=== PATIENT | female | born 1995 | race Caucasian/White ===

== ENCOUNTER 2017-03-12 17:08 | Emergency (ER) | payer SELFPAY ==
[2017-03-12 17:26] VITALS: BP 129/68
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
== END 2017-03-12 19:38 | disposition home or self-care (01) ==
LOC: UCEAST 17:08
DX: S16.1XXA Strain of muscle, fascia and tendon at neck level, initial encounter (principal); V43.52XA Car driver injured in collision with other type car in traffic accident, initial encounter; Y92.410 Unspecified street and highway as the place of occurrence of the external cause
CPT/HCPCS: 72020; 72050; 72070; 72110; 99212; G0463

== ENCOUNTER 2017-04-18 15:25 | Emergency (ER) | payer BC ==
[2017-04-18] MEDS ORDERED: HYDROmorphone* 1 MG/ML 1 ML SYR IV ONE (16:33)
[2017-04-18] MEDS ORDERED: LORazepam INJ* 2 MG/ML 1 ML VIAL IV PUSH ONE (16:33)
[2017-04-18] MEDS ORDERED: NS 0.9% 1000 ML* 1,000 ML IV ONE (16:33)
[2017-04-18 17:07] LABS: Hematocrit 42 % (35-47); Hemoglobin 13.9 g/dl (12.0-16.0); Mean Corpuscular HGB Conc 33 g/dl (31-36); Mean Corpuscular Hemoglobin 30 pg (27-31); Mean Corpuscular Volume 91 fL (80-97); Mean Platelet Volume 10 um3 (7.4-10.4); Red Blood Count 4.57 10^6/ul (4.0-5.4); Red Cell Distribution Width 13 % (10.5-15); White Blood Count 5.3 10^3/ul (3.5-10.8)
[2017-04-18 17:20] LABS: Albumin 4.3 g/dL (3.2-5.2); BUN/Creatinine Ratio 6.3 (8-20); C Reactive Protein 2.48 mg/L (< 5.00); Calcium 9.2 mg/dL (8.6-10.3); EGFR African American 94.6 (>60); EGFR Non-African American 73.6 (>60); Globulin 2.8 g/dL (2-4); Potassium 3.8 mmol/L (3.5-5.0); Total Bilirubin 0.8 mg/dL (0.2-1.0); Total Protein 7.1 g/dL (6.4-8.9)
--- NOTE | 2017-04-18 18:14 | RAD ---
HISTORY: Pelvic pain, misplaced IUD COMPARISONS: None TECHNIQUE: Multiple transverse and longitudinal ultrasound images were obtained of the pelvis using grayscale, color Doppler, and spectral Doppler imaging using the transabdominal transducer. FINDINGS: UTERUS: The uterus measures 7.8 x 3.1 x 5.3 cm. The uterus is normal in shape, size, contour, and echotexture. ENDOMETRIUM: The endometrial stripe is smooth. The endometrium measures 0.4 cm in thickness. An IUD is noted along the lower uterine segment extending into the endocervical canal. CUL-DE-SAC: There is no free fluid within the cul-de-sac. RIGHT OVARY: The right ovary measures 2.6 x 1.4 x 1.6 cm. Normal arterial and venous waveforms are identifiable within the ovary on spectral Doppler imaging. LEFT OVARY: The left ovary measures 3.1 x 2.2 x 2.2 cm. ] Normal ovary flow there is a 0.8 x 1.1 x 1.3 cm simple cyst of the left ovary. BLADDER: The visualized bladder is unremarkable. IMPRESSION: AN IUD IS NOTED ALONG THE LOWER UTERINE SEGMENT EXTENDING INTO THE ENDOCERVICAL CANAL.
[2017-04-18 18:24] LABS: Urine Bacteria 1+ (Absent); Urine Bilirubin Negative (Negative); Urine Glucose Negative (Negative); Urine Nitrite Negative (Negative)
[2017-04-18 20:21] VITALS: BP 125/76
--- NOTE | 2017-04-18 21:13 | ED ---
Cyn Eldridge Auryana, scribed for Jenny Lopez MD on 04/18/17 at 1632 . GI/ HPI - HPI Summary HPI Summary: 21 year old female presents with imbedded IUD. Patient reports that she had the IUD placed 4 years ago - known it was horizontal but reports that her doctors were not concerned. [facility]. She reports severe pelvic pain s/p attempt - patient states that she was given [facility] at [facility] without any improvement. [facility] referred the patient to Dr. Alvarado, but she is unable to get an initial appointment for another 2 weeks. LMP- 04/14/17. PMHx is significant for gastritis and migraines. FHx is significant for migraines. - History of Current Complaint Chief Complaint: EDGeneral Time Seen by Provider: 04/18/17 16:21 Stated Complaint: REMOVAL OF IUD Hx Obtained From: Patient Onset/Duration: Still Present Timing: Constant Severity: Moderate Current Severity: Severe Pain Intensity: 8 Location of Pain: None - pelvic pain Associated Signs and Symptoms: Positive: Other: - pelvic pain - Allergy/Home Medications Allergies/Adverse Reactions: Allergies Allergy/AdvReac Type Severity Reaction Status Date / Time Amoxicillin Allergy Intermediate Rash Verified 03/12/17 17:26 Mushroom Extract Complex Allergy Unknown Unknown Verified 03/12/17 17:26 Reaction Details hay Allergy Hives Uncoded 03/12/17 17:26 Home Medications: Home Medications Fexofenadine-Pseudoephedrine [Chioma-D 24 Hour Allergy] 1 tab PO BID 04/18/17 [ History Confirmed 04/18/17] PMH/Surg Hx/FS Hx/Imm Hx Endocrine/Hematology History: Denies: Hx Diabetes, Hx Thyroid Disease Cardiovascular History: Denies: Hx Hypercholesterolemia, Hx Hypertension, Hx Peripheral Vascular Disease Respiratory History: Reports: Hx Asthma GI History: Reports: Other GI Disorders - Gastritis Musculoskeletal History: Denies: Hx Arthritis, Hx Osteoporosis Sensory History: Denies: Hx Cataracts, Hx Contacts or Glasses, Hx Glaucoma Opthamlomology History: Denies: Hx Cataracts, Hx Contacts or Glasses, Hx Glaucoma Neurological History: Denies: Hx Headaches, Hx Seizures, Hx Transient Ischemic Attacks (TIA) Psychiatric History: Denies: Hx Anxiety, Hx Depression Infectious Disease History: Denies: Hx Clostridium Difficile, Hx Hepatitis, Hx Human Immunodeficiency Virus (HIV), Hx of Known/Suspected MRSA, Hx Shingles, Hx Tuberculosis, Hx Known/ Suspected VRE, Hx Known/Suspected VRSA, History Other Infectious Disease, Traveled Outside the [place] in Last 30 Days - Family History Known Family History: Positive: Hypertension, Diabetes - Social History Lives: Alone Alcohol Use: Occasionally Hx Substance Use: No Substance Use Type: Reports: None Hx Tobacco Use: No Smoking Status (MU): Never Smoked Tobacco Have You Smoked in the Last Year: No Review of Systems Constitutional: Negative Negative: Fever Eyes: Negative ENT: Negative Cardiovascular: Negative Respiratory: Negative Positive: Other - pelvic pain Genitourinary: Negative Musculoskeletal: Negative Skin: Negative Neurological: Negative Psychological: Normal All Other Systems Reviewed And Are Negative: Yes Physical Exam - Summary Physical Exam Summary: General: Well appearing, mild pain distress Skin: Warm, Skin Color Reflects Adequate Perfusion, Dry Eyes: EOMI, PAULINO ENT: Pharynx normal, TMs normal Neck: Supple, nontender Respiratory: CTA, breath sounds present, no rhonchi, no wheezes, no rales Cardiovascular: RRR, no murmur, no rub, no gallop Abdomen: Soft, diffuse abdominal tenderness, Non-distended, no guarding, no rebound Bowel: Present Musculoskeletal: BRAYDON, No edema Neuro: Sensory/motor intact, A&Ox3, CN intact 2-12 Psych: Affect/mood appropriate. pelvic exam - Triage Information Reviewed: Yes Vital Signs On Initial Exam: Initial Vitals Temp Pulse Resp BP Pulse Ox 98.3 F 70 18 126/78 97 04/18/17 15:28 04/18/17 15:28 04/18/17 15:28 04/18/17 15:28 04/18/17 15:28 Vital Signs Reviewed: Yes Diagnostics - Vital Signs Vital Signs Temp Pulse Resp BP Pulse Ox 04/18/17 15:28 98.3 F 70 18 126/78 97 - Laboratory Lab Results: Lab Results 04/18/17 04/18/17 04/18/17 Range/Units 16:55 16:55 18:00 WBC 5.3 (3.5-10.8) 10^3/ul RBC 4.57 (4.0-5.4) 10^6/ul Hgb 13.9 (12.0-16.0) g/dl Hct 42 (35-47) % MCV 91 (80-97) fL MCH 30 (27-31) pg MCHC 33 (31-36) g/dl RDW 13 (10.5-15) % Plt Count 162 (150-450) 10^3/ul MPV 10 (7.4-10.4) um3 Neut % (Auto) 56.9 (38-83) % Lymph % (Auto) 35.9 (25-47) % [place] % (Auto) 4.8 (1-9) % Eos % (Auto) 1.8 (0-6) % Baso % (Auto) 0.6 (0-2) % Absolute Neuts (auto) 3.0 (1.5-7.7) 10^3/ul Absolute Lymphs (auto) 1.9 (1.0-4.8) 10^3/ul Absolute Monos (auto) 0.3 (0-0.8) 10^3/ul Absolute Eos (auto) 0.1 (0-0.6) 10^3/ul Absolute Basos (auto) 0 (0-0.2) 10^3/ul Absolute Nucleated RBC 0.01 10^3/ul Nucleated RBC % 0.1 Sodium 138 (133-145) mmol/L Potassium 3.8 (3.5-5.0) mmol/L Chloride 107 (101-111) mmol/L Carbon Dioxide 24 (22-32) mmol/L Anion Gap 7 (2-11) mmol/L BUN 6 (6-24) mg/dL Creatinine 0.95 (0.51-0.95) mg/dL Est GFR ( Amer) 94.6 (>60) Est GFR (Non-Af Amer) 73.6 (>60) BUN/Creatinine Ratio 6.3 L (8-20) Glucose 89 (70-100) mg/dL Calcium 9.2 (8.6-10.3) mg/dL Total Bilirubin 0.80 (0.2-1.0) mg/dL AST 24 (13-39) U/L ALT 14 (7-52) U/L Alkaline Phosphatase 52 (34-104) U/L C-Reactive Protein 2.48 (< 5.00) mg/L Total Protein 7.1 (6.4-8.9) g/dL Albumin 4.3 (3.2-5.2) g/dL Globulin 2.8 (2-4) g/dL Albumin/Globulin Ratio 1.5 (1-3) Urine Color Yellow Urine Appearance Clear Urine pH 6.0 (5-9) Ur Specific [place] 1.010 (1.010-1.030) Urine Protein Negative (Negative) Urine Ketones Negative (Negative) Urine Blood Negative (Negative) Urine Nitrate Negative (Negative) Urine Bilirubin Negative (Negative) Urine Urobilinogen Negative (Negative) Ur Leukocyte Esterase Trace H (Negative) Urine WBC (Auto) Trace(0-5/hpf) (Absent) Urine RBC (Auto) Absent (Absent) Ur Squamous Epith Cells Present H (Absent) Urine Bacteria 1+ H (Absent) Urine Glucose Negative (Negative) Result Diagrams: 04/18/17 16:55 04/18/17 16:55 Lab Statement: Any lab studies that have been ordered have been reviewed, and results considered in the medical decision making process. - Additional Comments Diagnostic Additional Comments: US PELVIC: AN IUD IS NOTED ALONG THE LOWER UTERINE SEGMENT EXTENDING INTO THE ENDOCERVICAL CANAL. Re-Evaluation - Re-Evaluation First Eval Re-Evaluation Time: 20:10 Change: Unchanged GIGU Course/Dx - Course Course Of Treatment: 21 yo female with pain after an attempted iud removal talked with Rachel who will have pt seen in the next 2 business days for evaluation/removal - Diagnoses Provider Diagnoses: Pelvic pain, Intrauterine device (IUD) migration - Physician Notifications Discussed Care Of Patient With: Nina Gaxiola Time Discussed With Above Provider: 20:06 - HAVE PATIENT CALL OFFICE TOMORROW FOR AN APPOINTMENT .. Instructed by Provider To: Have Pt Call For Appt. Discharge - Discharge Plan Condition: Stable Disposition: HOME Patient Education Materials: Pelvic Pain in Women (ED) Referrals: Nina Gaxiola MD [Medical Doctor] - 1 Day (please call office tomorrow for an appointment.) The documentation as recorded by the Cyn abraham Auryana accurately reflects the service I personally performed and the decisions made by me, Jenny Lopez MD.
== END 2017-04-18 20:20 | disposition home or self-care (01) ==
LOC: ED 15:25
DX: T83.39XA Other mechanical complication of intrauterine contraceptive device, initial encounter (principal); Y84.8 Other medical procedures as the cause of abnormal reaction of the patient, or of later complication, without mention of misadventure at the time of the procedure; Z88.0 Allergy status to penicillin; R10.2 Pelvic and perineal pain
CPT/HCPCS: 36415; 76856; 80053; 81003; 81015; 85025; 86140; 87086; 96360; 96374; 96375; 99283; J1170; J2060

== ENCOUNTER 2017-04-23 18:23 | Emergency (ER) | payer BC ==
--- NOTE | 2017-04-23 20:54 | RAD ---
Indication: LEFT ankle and foot pain following injury. Comparison: No relevant prior exams available on the [facility] PACS for comparison. Technique: AP, lateral, and oblique views LEFT foot. AP, mortise, and lateral views LEFT ankle. Report: Normal articular alignment at the ankle and foot. Negative for fracture or osteochondral lesion at the ankle or foot. Negative for significant arthropathic change. Mild soft tissue swelling about the ankle without significant focality. IMPRESSION: Mild nonfocal soft tissue swelling about the ankle without additional radiographic abnormality of the ankle or foot.
--- NOTE | 2017-04-23 20:54 | RAD ---
Indication: LEFT ankle and foot pain following injury. Comparison: No relevant prior exams available on the [facility] PACS for comparison. Technique: AP, lateral, and oblique views LEFT foot. AP, mortise, and lateral views LEFT ankle. Report: Normal articular alignment at the ankle and foot. Negative for fracture or osteochondral lesion at the ankle or foot. Negative for significant arthropathic change. Mild soft tissue swelling about the ankle without significant focality. IMPRESSION: Mild nonfocal soft tissue swelling about the ankle without additional radiographic abnormality of the ankle or foot.
[2017-04-23] MEDS ORDERED: Acetaminophen TAB* 325 MG PO ONE (22:46)
--- NOTE | 2017-04-23 22:49 | ED ---
Lower Extremity - HPI Summary HPI Summary: Pt here w/ Lt ankle injury/pain/swelling after stepping into a divot tonight. Has pain w/ movement and weight bearing. Denies numbness, tingling, weakness. H/ o sprain to Rt ankle requiring cam walking boot. Has not tried anything for pain prior to arrival. No other injuries to report. Cannot take NSAID's d/t gastritis. - History of Current Complaint Chief Complaint: EDExtremityLower Stated Complaint: LT ANKLE INJURY Time Seen by Provider: 04/23/17 21:44 Hx Obtained From: Patient, Family/Pharmacy Technician Instructor - mother Hx Last Menstrual Period: 02/23/17 Pain Intensity: 8 - Allergies/Home Medications Allergies/Adverse Reactions: Allergies Allergy/AdvReac Type Severity Reaction Status Date / Time Amoxicillin Allergy Intermediate Rash Verified 04/23/17 13:26 Mushroom Extract Complex Allergy Unknown Unknown Verified 04/23/17 13:26 Reaction Details hay Allergy Hives Uncoded 04/23/17 13:26 PMH/Surg Hx/FS Hx/Imm Hx Previously Healthy: Yes Endocrine/Hematology History: Denies: Hx Anticoagulant Therapy, Hx Blood Disorders, Hx Diabetes, Hx Thyroid Disease Cardiovascular History: Denies: Hx Hypercholesterolemia, Hx Hypertension, Hx Peripheral Vascular Disease Respiratory History: Reports: Hx Asthma - INHALER AVAILABLE, USUALLY REST, DARK ROOM , NO MEDS GI History: Reports: Hx Gastroesophageal Reflux Disease - TRYS TO CONTROLL TRIGGERS: DIET, OTC MEDS, Other GI Disorders - Hx OF Gastritis History: Reports: Hx Kidney Stones - Hx OF, LAST WAS 12/2016, PASSES ON OWN Musculoskeletal History: Reports: Hx Tendonitis - Hx RT ARM/SHOLDER, NO Sx DURING 2017, Other Musculoskeletal History - morocho splints, Rt ankle sprain Denies: Hx Arthritis, Hx Osteoporosis Sensory History: Reports: Hx Contacts or Glasses - WEARS CONTACTS, WILL WEAR GLASSES DAY OF SURGERY Denies: Hx Cataracts, Hx Glaucoma Opthamlomology History: Reports: Hx Contacts or Glasses - WEARS CONTACTS, WILL WEAR GLASSES DAY OF SURGERY Denies: Hx Cataracts, Hx Glaucoma Neurological History: Reports: Hx Migraine - 1-2/WEEK, NO MEDS, DARK ROOM, RESTS Denies: Hx Headaches, Hx Seizures, Hx Transient Ischemic Attacks (TIA) Psychiatric History: Reports: Hx Anxiety, Hx Depression Infectious Disease History: No Infectious Disease History: Denies: Hx Clostridium Difficile, Hx Hepatitis, Hx Human Immunodeficiency Virus (HIV), Hx of Known/Suspected MRSA, Hx Shingles, Hx Tuberculosis, Hx Known/ Suspected VRE, Hx Known/Suspected VRSA, History Other Infectious Disease, Traveled Outside the [place] in Last 30 Days - Family History Known Family History: Positive: Hypertension, Diabetes - Social History 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 Lives: With Family Alcohol Use: Occasionally Alcohol Amount: 1-2 DRINKS/MONTH Hx Substance Use: No Substance Use Type: Reports: None Hx Tobacco Use: No Smoking Status (MU): Never Smoked Tobacco Have You Smoked in the Last Year: No Review of Systems Musculoskeletal: Other - see HPI Skin: Negative Neurological: Negative Positive: Anxious All Other Systems Reviewed And Are Negative: Yes Physical Exam Triage Information Reviewed: Yes Vital Signs On Initial Exam: Initial Vitals Temp Pulse Resp BP Pulse Ox 98.3 F 105 20 149/76 98 04/23/17 18:25 04/23/17 18:25 04/23/17 18:25 04/23/17 18:25 04/23/17 18:25 Vital Signs Reviewed: Yes Appearance: Positive: Well-Appearing, No Pain Distress - at rest - worse w/ any palpation, Well-Nourished Skin: Positive: Warm, Dry - no erythema, no ecchymosis - mild edema about the lateral malleolus which is TTP Head/Face: Positive: Normal Head/Face Inspection ENT: Positive: Hearing grossly normal Respiratory/Lung Sounds: Positive: Breath Sounds Present Cardiovascular: Positive: Pulses are Symmetrical in both Upper and Lower Extremities Musculoskeletal: Positive: Strength/ROM Intact - toes and knee, Limited @ - Lt ankle ROM limited d/t pain, Pain @ - exquisite tenderness with touching skin - no sebastian deformity Neurological: Positive: Normal, Sensory/Motor Intact, Alert, Oriented to Person Place, Time, CN Intact II-III Psychiatric: Positive: Anxious - agitated Procedures - Splinting Hand-Made Type: fiberglass Splint: posterior walking Pre-Proc Neuro Vasc Exam: normal Post-Proc Neuro Vasc Exam: normal Diagnostics - Vital Signs Vital Signs Temp Pulse Resp BP Pulse Ox 04/23/17 19:14 98.8 F 82 18 117/67 98 04/23/17 18:25 98.3 F 105 20 149/76 98 - Laboratory Lab Statement: Any lab studies that have been ordered have been reviewed, and results considered in the medical decision making process. Re-Evaluation - Re-Evaluation First Eval Change: Improved - w/ splint in place but still requesting stronger pain med for sleep tonight Lower Extremity Course/Dx - Course Course Of Treatment: Pt here w/ Lt ankle injury while playing softball tonight. No fx, no dislocation. Pain is out of proportion for exam and XR results. Initially ordered cam walking boot however these are out of stock in her size so a posterior walking splint was applied. Pt given crutches and advised to RICE and take tylenol until seen by ortho in the event she has a more significant soft tissue injury missed in ED tonight. Xr reviewed by myself as well as Dr. Osman along with Dr. Last whose report is w/o acute pathology. 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 - Diagnoses Provider Diagnoses: Left ankle sprain - Physician Notifications Discussed Care Of Patient With: Dr. Osman Discharge - Discharge Plan Condition: Stable Disposition: HOME Patient Education Materials: Ankle Sprain (ED), Crutch Instructions (ED) Forms: *Work Release Referrals: Tree Ortiz MD [Medical Doctor] - Additional Instructions: Rest, ice, elevate Keep splint in place until seen by orthopedics - call tomorrow to schedule an appointment Use crutches to avoid weight bearing until able to tolerate You may take acetaminophen 975mg every 6 hours for pain
[2017-04-23] MEDS ORDERED: HYDROcodone/ACETAMIN 5-325 MG* 1 TAB PO ONE (23:09)
[2017-04-24 00:44] VITALS: BP 132/68
== END 2017-04-24 00:44 | disposition home or self-care (01) ==
LOC: ED 18:23
DX: S93.402A Sprain of unspecified ligament of left ankle, initial encounter (principal); X50.1XXA Overexertion from prolonged static or awkward postures, initial encounter; Y92.9 Unspecified place or not applicable; Z88.0 Allergy status to penicillin; Y93.64 Activity, baseball
CPT/HCPCS: 29515; 99282; A9270-GY

== ENCOUNTER 2017-04-26 09:34 | Day surgery (SDC) | payer BC ==
[~2017-04-26 09:34] MED LIST: Buffered Lidocaine 0.9% SYRIN* 5 ML/SYR SYRINGE INTRADERM ONE
[2017-04-26] MEDS ORDERED: Buffered Lidocaine 0.9% SYRIN* 5 ML/SYR SYRINGE ONE (09:36)
[2017-04-26 09:47] LABS: Manual Entry Verification JEA0012; UR Preg Internal Control QC Line Present
[2017-04-26] MEDS ORDERED: Midazolam* 1 MG/ML 2 ML VIAL (2 MG) ONE (10:29)
[2017-04-26] MEDS ORDERED: fentaNYL* 50 MCG/ML 2 ML VIAL (100 MCG VIAL) ONE (10:29)
[2017-04-26] MEDS ORDERED: Ketorolac INJ* 30 MG/ML 1 ML VIAL ONE (11:42)
[2017-04-26] MEDS ORDERED: Famotidine IV* 10 MG/ML 2 ML (20 mg) ONE (11:42)
[2017-04-26] MEDS ORDERED: Dexamethasone IV* 4 MG/ML 1 ML (4 MG) ONE (11:42)
[2017-04-26] MEDS ORDERED: Propofol* 10 MG/ML 20 ML BTL IV PUSH ONE (11:42)
[2017-04-26] MEDS ORDERED: Lidocaine 2% PF * 5 ML VIAL ONE (11:42)
[2017-04-26] MEDS ORDERED: Ondansetron INJ* 2 MG/ML VIAL IV PRN (12:01)
[2017-04-26] MEDS ORDERED: Acetaminophen TAB* 325 MG PO PRN (12:01)
[2017-04-26] MEDS ORDERED: DiMENhydriNATE IV* 50 MG/ML VIAL IV PUSH PRN (12:01)
[2017-04-26] MEDS ORDERED: HYDROcodone/ACETAMIN 5-325 MG* 1 TAB PO PRN (12:01)
[2017-04-26] MEDS ORDERED: Acetaminophen TAB* 325 MG ONE (12:33)
[2017-04-26 12:47] VITALS: BP 101/58
--- NOTE | 2017-05-16 13:29 | OP ---
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 ANESTHESIOLOGIST: Dr. Beltrán ANESTHESIA: General. PRE-OP DIAGNOSIS: Misplaced intrauterine device. POST-OP DIAGNOSIS: Misplaced intrauterine device. OPERATIVE PROCEDURE: Dilation hysteroscopy and removal of IUD. ESTIMATED BLOOD LOSS: Minimal. HYSTEROSCOPIC FLUID DEFICIT: Zero. URINE OUTPUT: 100 cc. SPECIMEN: IUD. FLUIDS: 800 cc of crystalloid. DRAINS: None. FINDINGS: Revealed normal tubal ostia. IUD removed with polyp forceps. Normal uterine cavity. Area seen within the endocervical canal where the IUD was wedged was identified. COMPLICATIONS: None apparent. DISPOSITION: Stable to recovery room. DESCRIPTION OF PROCEDURE: The patient was placed in dorsal lithotomy position. Legs were placed in Hydro Geoff stirrups. Perineum and vagina were prepped and draped in a sterile standard fashion. The patient was identified with universal protocol for correct procedure, patient procedure. Straight cath was used to drain clear yellow urine, 100 cc. Self-cath was removed. Sterile speculum was inserted. Cervix was visualized. The IUD string was visualized, grasped with a sponge forceps, and IUD was removed without difficulty. The anterior lip of the cervix was grasped with a single-toothed tenaculum and dilated to #6 Hegar dilator and the hysteroscope was inserted. The spot where the IUD placed wedged in the endocervix was identified. The uterine cavity was noted to have a normal appearance. Tubal ostia was seen and noted to have a normal appearance. Hysteroscope was removed. Single-toothed tenaculum was removed. Sterile speculum was removed. All sponge, instrument, and blade counts were correct throughout the case. The patient tolerated the procedure well and went to recovery room in stable condition. [id number]/[facility] #: [id number] [facility]
== END 2017-04-26 13:07 | disposition home or self-care (01) ==
LOC: OR 09:34
PROVIDERS: ATTEND Obstetrics & Gynecology
DX: T83.32XA Displacement of intrauterine contraceptive device, initial encounter (principal); R00.2 Palpitations; J45.909 Unspecified asthma, uncomplicated
CPT/HCPCS: 81025; 88300; A9270-GY; J1100; J1885; J2250; J2704; J3010

== ENCOUNTER 2017-07-02 21:07 | Emergency (ER) | payer BC ==
[2017-07-02 21:17] VITALS: BP 145/71
[2017-07-02] MEDS ORDERED: LORazepam TAB(*) 1 MG PO ONE (21:35)
--- NOTE | 2017-07-02 21:41 | UC ---
Psychiatric Complaint HPI - HPI Summary HPI Summary: Patient presents to the with CC of anxiety. She has a long history of anxiety which was previously treated with zoloft 75mg. After switching physicians, the new physician started her off on 25mg for which she said did not help, so she stopped taking the medication. Since that time, her anxiety has escalated and now has crying moments every few days. Hx of depression. Denies SI/HI. Denies self harm. Denies worsening depression recently, just notes to worsening anxiety. Unknown what is causing the anxiety as she has no excess stress in her life. Denies health problems otherwise. Never dx with bipolar or psychosis. - History Of Current Complaint Chief Complaint: UCPsych Stated Complaint: ANXIETY Time Seen by Provider: 07/02/17 21:24 Hx Obtained From: Patient Hx Last Menstrual Period: may 27 ?: Yes Onset/Duration: Sudden Onset Timing: Constant Severity Initially: Moderate Severity Currently: Moderate Character: Depressed, Anxious Aggravating Factor(s): Medication Non-compliance Alleviating Factor(s): Medication Associated Signs And Symptoms: Sleep Disturbance, Social Withdrawal, Social Isolation Related History: Positive For: Prior Psychiatric Issues - depression/anxiety - Risk Factor(s) Completed Suicide Risk Factors: Negative - Allergies/Home Medications Allergies/Adverse Reactions: Allergies Allergy/AdvReac Type Severity Reaction Status Date / Time Amoxicillin Allergy Intermediate Rash Verified 07/02/17 21:17 Mushroom Extract Complex Allergy Unknown Unknown Verified 07/02/17 21:17 Reaction Details hay Allergy Hives Uncoded 07/02/17 21:17 PMH/Surg Hx/FS Hx/Imm Hx Previously Healthy: Yes Other History Of: Negative For: Anticoagulant Therapy - Surgical History Surgical History: Yes Surgery Procedure, Year, and Place: cervical surgery summer 2016 - Family History Known Family History: Positive: None, Hypertension, Diabetes - Social History Alcohol Use: Rare Alcohol Amount: 1-2 DRINKS/MONTH Substance Use Type: None Smoking Status (MU): Never Smoked Tobacco Have You Smoked in the Last Year: No - Immunization History Most Recent Influenza Vaccination: 2014 Most Recent Tetanus Shot: up to date Vaccination Up to Date: Yes Review of Systems Constitutional: Negative Skin: Negative Respiratory: Negative Cardiovascular: Negative Motor: Negative Neurovascular: Negative Musculoskeletal: Negative Neurological: Negative Psychological: Anxious, Depressed Is Patient Immunocompromised?: No All Other Systems Reviewed And Are Negative: Yes Physical Exam Triage Information Reviewed: Yes Appearance: Well-Appearing, Well-Nourished Vital Signs: Initial Vital Signs Temp 100.4 F 07/02/17 21:11 Pulse 109 07/02/17 21:11 Resp 22 07/02/17 21:11 BP 145/71 07/02/17 21:11 Pulse Ox 100 07/02/17 21:11 Vital Signs Reviewed: Yes Eye Exam: Normal Eyes: Positive: Conjunctiva Clear Neck exam: Normal Neck: Positive: Supple, Nontender Respiratory Exam: Normal Respiratory: Positive: Chest non-tender, Lungs clear Cardiovascular Exam: Normal Cardiovascular: Positive: RRR Musculoskeletal Exam: Normal Musculoskeletal: Positive: Strength Intact Neurological Exam: Normal Neurological: Positive: Alert Psychological: Positive: Age Appropriate Behavior, Consolable Skin Exam: Normal Psych Complaint Course/Dx - Course Course Of Treatment: Patient is tearful on examination. She has been having worsening anxiety with unknown cause. Discussed treatment options. Provider states she is able to provide patient with a small amount of anxiety medication for breakthrough anxiety not well controlled with organic methods. She agrees to try this medication as she has had it before without complications and improvement of anxiety symptoms. Denies other symptoms including SI/HI or self harm. She has an appt on Jul [address] Rai for evaluation of anxiety and depression. No previous suicide attempts. Mother with her at appt and supportive family at home per mother. She agrees to go directly to the ED if any symptoms worsen, she has thoughts of depression or suicide or the medication is not improving her symptoms. She is OK with discharge. - Differential Dx/Diagnosis Differential Diagnosis/HQI/PQRI: Depression Provider Diagnoses: Anxiety Discharge - Discharge Plan Condition: Stable Disposition: HOME Prescriptions: LORazepam TAB(*) [Ativan 1 MG TAB (*)] 1 mg PO Q8H PRN #20 tab MDD 3 PRN Reason: Anxiety Patient Education Materials: Anxiety (ED) Referrals: Mirtha Sigala MD [Primary Care Provider] - Additional Instructions: Please take only through breakthrough anxiety If you develop any worsening symptoms of anxiety - you need to go IMMEDIATELY to the ED Follow up with Dr. Martinez as established on 07/30/17. Try breathing techniques, exercise or other activities you think will help your anxiety
== END 2017-07-02 21:42 | disposition home or self-care (01) ==
LOC: UCEAST 21:07
DX: F41.9 Anxiety disorder, unspecified (principal); F32.9 Major depressive disorder, single episode, unspecified; Z91.19 Patient's noncompliance with other medical treatment and regimen; Z88.3 Allergy status to other anti-infective agents
CPT/HCPCS: 99212; A9270-GY; G0463

== ENCOUNTER 2018-03-04 16:25 | Emergency (ER) | payer BC ==
[2018-03-04 16:52] VITALS: BP 115/55
--- NOTE | 2018-03-04 17:20 | UC ---
Complaint Female HPI - HPI Summary HPI Summary: Patient began with pain burning urgency frequency urinating in frequent small amounts 7 days ago. Symptoms continue no fevers chills nausea vomiting back pain - History Of Current Complaint Chief Complaint: UCGU Stated Complaint: BURNING URINATION Time Seen by Provider: 03/04/18 17:12 Hx Obtained From: Patient Hx Last Menstrual Period: 02/01/18 ?: No Onset/Duration: Sudden Onset, Lasting Days - 7, Still Present Timing: Constant Pain Intensity: 0 Character: Burning Aggravating Factor(s): Urination Alleviating Factor(s): Nothing Associated Signs And Symptoms: Positive: Negative - Allergies/Home Medications Allergies/Adverse Reactions: Allergies Allergy/AdvReac Type Severity Reaction Status Date / Time amoxicillin Allergy Intermediate Rash Verified 03/04/18 17:07 mushroom Allergy See Comment Verified 03/04/18 17:07 hay Allergy Hives Uncoded 03/04/18 17:07 Home Medications: Home Medications Gabapentin CAP(*) [Neurontin 300 CAP(*)] 300 mg PO DAILY 03/04/18 [History Confirmed 03/04/18] PMH/Surg Hx/FS Hx/Imm Hx Previously Healthy: No - environmental allergies Psychological History: Anxiety Other History Of: Negative For: Anticoagulant Therapy - Surgical History Surgical History: Yes Surgery Procedure, Year, and Place: REMOVAL OF EMBEDDED IUD IN CERVIX - Family History Known Family History: Positive: None, Hypertension, Diabetes - Social History Occupation: Student Lives: With Family Alcohol Use: Rare Alcohol Amount: 1-2 DRINKS/MONTH Substance Use Type: None Smoking Status (MU): Never Smoked Tobacco Have You Smoked in the Last Year: No - Immunization History Most Recent Influenza Vaccination: 2014 Most Recent Tetanus Shot: up to date Vaccination Up to Date: Yes Review of Systems Constitutional: Negative Skin: Negative Eyes: Negative ENT: Negative Respiratory: Negative Cardiovascular: Negative Gastrointestinal: Negative Genitourinary: Dysuria, Frequency, Urgency Motor: Negative Neurovascular: Negative Musculoskeletal: Negative Neurological: Negative Psychological: Negative Is Patient Immunocompromised?: No All Other Systems Reviewed And Are Negative: Yes Physical Exam Triage Information Reviewed: Yes Appearance: Well-Appearing, No Pain Distress, Well-Nourished Vital Signs: Initial Vital Signs Temp 99.2 F 03/04/18 16:43 Pulse 84 03/04/18 16:43 Resp 16 03/04/18 16:43 BP 115/55 03/04/18 16:43 Pulse Ox 100 03/04/18 16:43 Vital Signs Reviewed: Yes Eye Exam: Normal Eyes: Positive: Conjunctiva Clear ENT Exam: Normal ENT: Positive: Normal ENT inspection, Hearing grossly normal. Negative: Trismus , Muffled voice, Hoarse voice Dental Exam: Normal Neck exam: Normal Neck: Positive: Supple, Nontender Respiratory Exam: Normal Respiratory: Positive: Chest non-tender, No respiratory distress, No accessory muscle use Cardiovascular Exam: Normal Cardiovascular: Positive: RRR, Pulses Normal, Brisk Capillary Refill Musculoskeletal Exam: Normal Musculoskeletal: Positive: Strength Intact, ROM Intact, No Edema Neurological Exam: Normal Neurological: Positive: Alert, Muscle Tone Normal Psychological Exam: Normal Skin Exam: Normal Diagnostics - Laboratory Diagnostic Studies Completed/Ordered: +2 Leukoesterase, trace lysed blood Complaint Female Dx - Course Course Of Treatment: Increase fluids, Macrobid, Pyridium, culture urine follow with PCP when necessary - Differential Dx/Diagnosis Provider Diagnoses: UTI Discharge - Sign-Out/Discharge Documenting (check all that apply): Discharge/Admit/Transfer - Discharge Plan Condition: Stable Disposition: HOME Prescriptions: Nitrofurantoin Monohyd/M-Cryst [Macrobid 100 mg Capsule] 100 mg PO BID #10 cap Phenazopyridine TAB* [Pyridium 100 mg TAB*] 100 mg PO TID PRN #6 tab PRN Reason: urinary pain and burning Patient Education Materials: Urinary Tract Infection in Women (ED) Referrals: Mirtha Sigala MD [Primary Care Provider] - If Needed - Billing Disposition and Condition Condition: STABLE Disposition: Home
== END 2018-03-04 17:28 | disposition home or self-care (01) ==
LOC: UCEAST 16:25
DX: F41.9 Anxiety disorder, unspecified (principal); N39.0 Urinary tract infection, site not specified; Z88.0 Allergy status to penicillin
CPT/HCPCS: 81003; 87077; 87086; 87186; 99212; G0463

== ENCOUNTER 2018-09-23 12:10 | Emergency (ER) | payer BC ==
[2018-09-23 12:27] VITALS: BP 128/71
[2018-09-23] MEDS ORDERED: Ketorolac INJ* 60 MG/2 ML VIAL IM ONE (12:51)
--- NOTE | 2018-09-23 12:58 | ED ---
Back Pain - HPI Summary HPI Summary: 22 yo WF with presents with right LBP started while bending over to tie her shoelace, started about 130pm yesterday afternoon, denies previous injury or fall. never had this happen before. Pain is right lower paraspinal region with radiation to right posterior-lateral thigh. Tried taking ibuprofen, hydrocodone , without improvement - History of Current Complaint Chief Complaint: UCBackPain Stated Complaint: BACK INJURY Time Seen by Provider: 09/23/18 12:46 Hx Obtained From: Patient Hx Last Menstrual Period: August 27, 2018 Onset/Duration: Sudden Onset Onset/Duration: Started Days Ago Timing: Constant, Intermittent Severity Initially: Moderate Severity Currently: Severe Pain Intensity: 10 Character: Sharp - Allergies/Home Medications Allergies/Adverse Reactions: Allergies Allergy/AdvReac Type Severity Reaction Status Date / Time amoxicillin Allergy Intermediate Rash Verified 09/23/18 12:20 mushroom Allergy See Comment Verified 09/23/18 12:20 hay Allergy Hives Uncoded 09/23/18 12:20 Home Medications: Home Medications Cyclobenzaprine TAB* [Flexeril 10 MG TAB*] 10 mg PO BID PRN 09/23/18 [History Confirmed 09/23/18] Hydrocodone/APAP 5/300 (NF) [Vicodin 5 MG/300 MG(NF)] 1 tab PO Q6H PRN 09/23/18 [History Confirmed 09/23/18] Ibuprofen 800 mg PO Q8HR PRN 09/23/18 [History Confirmed 09/23/18] Sertraline HCl [Zoloft] 100 mg PO DAILY 09/23/18 [History Confirmed 09/23/18] PMH/Surg Hx/FS Hx/Imm Hx Previously Healthy: Yes Endocrine/Hematology History: Denies: Hx Anticoagulant Therapy, Hx Blood Disorders, Hx Diabetes, Hx Thyroid Disease Cardiovascular History: Denies: Hx Hypercholesterolemia, Hx Hypertension, Hx Pacemaker/ICD, Hx Peripheral Vascular Disease Respiratory History: Reports: Hx Asthma - INHALER AVAILABLE, USUALLY REST, DARK ROOM , NO MEDS GI History: Reports: Hx Gastroesophageal Reflux Disease - TRYS TO CONTROLL TRIGGERS: DIET, OTC MEDS, Other GI Disorders - Hx OF Gastritis History: Reports: Hx Kidney Stones - Hx OF, LAST WAS 12/2016, PASSES ON OWN Denies: Hx Renal Disease Musculoskeletal History: Reports: Hx Tendonitis - Hx RT ARM/SHOLDER, NO Sx DURING 2017, Other Musculoskeletal History - morocho splints, Rt ankle sprain Denies: Hx Arthritis, Hx Osteoporosis Sensory History: Reports: Hx Contacts or Glasses - WEARS CONTACTS, WILL WEAR GLASSES DAY OF SURGERY Denies: Hx Cataracts, Hx Glaucoma, Hx Hearing Aid Opthamlomology History: Reports: Hx Contacts or Glasses - WEARS CONTACTS, WILL WEAR GLASSES DAY OF SURGERY Denies: Hx Cataracts, Hx Glaucoma Neurological History: Reports: Hx Migraine - 1-2/WEEK, NO MEDS, DARK ROOM, RESTS Denies: Hx Headaches, Hx Seizures, Hx Transient Ischemic Attacks (TIA) Psychiatric History: Reports: Hx Anxiety, Hx Depression Denies: Hx Panic Disorder - Surgical History Surgery Procedure, Year, and Place: REMOVAL OF EMBEDDED IUD IN CERVIX Infectious Disease History: No Infectious Disease History: Denies: Hx Clostridium Difficile, Hx Hepatitis, Hx Human Immunodeficiency Virus (HIV), Hx of Known/Suspected MRSA, Hx Shingles, Hx Tuberculosis, Hx Known/ Suspected VRE, Hx Known/Suspected VRSA, History Other Infectious Disease, Traveled Outside the [place] in Last 30 Days - Family History Known Family History: Positive: None, Hypertension, Diabetes - Social History Alcohol Use: Rare Alcohol Amount: 1-2 DRINKS/MONTH Hx Substance Use: No Substance Use Type: Reports: None Hx Tobacco Use: No Smoking Status (MU): Never Smoked Tobacco Have You Smoked in the Last Year: No Review of Systems Constitutional: Negative Eyes: Negative ENT: Negative Cardiovascular: Negative Respiratory: Negative Gastrointestinal: Negative Genitourinary: Negative Musculoskeletal: Other - see HPI Positive: Decreased ROM Skin: Negative Neurological: Negative All Other Systems Reviewed And Are Negative: Yes Physical Exam - Summary Physical Exam Summary: Vital Signs Reviewed: Yes Skin: Positive: Warm Head/Face: Positive: Normal Head/Face Inspection Eyes: Positive: Normal ENT: Positive: Normal ENT inspection Neck: Positive: Supple Respiratory/Lung Sounds: Positive: Clear to Auscultation Cardiovascular: Positive: Normal, RRR, S1, S2 Abdomen Description: Positive: Nontender Musculoskeletal: Positive: right paravertebral tenderness and along the spinous process of L1-3 with radiculopathy with mild tingling on right foot, NVI Neurological: Positive: Normal Psychiatric: Positive: Normal, Affect/Mood Appropriate Vital Signs On Initial Exam: Initial Vitals Temp Pulse Resp BP Pulse Ox 37.3 C 89 18 128/71 99 09/23/18 12:17 09/23/18 12:17 09/23/18 12:17 09/23/18 12:17 09/23/18 12:17 Diagnostics - Vital Signs Vital Signs Temp Pulse Resp BP Pulse Ox 09/23/18 12:17 37.3 C 89 18 128/71 99 - Laboratory Lab Statement: Any lab studies that have been ordered have been reviewed, and results considered in the medical decision making process. Back Pain Course/Dx - Course Assessment/Plan: Right LBP with sciatica- lumbar XR neg for fx- pt still c/o intractable back pain in spite of IM Toradol- Declined PO norco in UC, advised to go to ER - Diagnoses Provider Diagnoses: Acute right-sided low back pain with right-sided sciatica Discharge - Sign-Out/Discharge Documenting (check all that apply): Patient Departure All imaging exams completed and their final reports reviewed: Yes - Discharge Plan Condition: Stable Disposition: HOME Referrals: Mirtha Sigala MD [Primary Care Provider] - Additional Instructions: PLEASE GO TO ER FOR INTRACTABLE BACK PAIN - Billing Disposition and Condition Condition: STABLE Disposition: Home
[2018-09-23] MEDS ORDERED: HYDROcodone/ACETAMIN 5-325 MG* 1 TAB PO ONE (13:32)
== END 2018-09-23 13:45 | disposition home health service (06) ==
LOC: UCEAST 12:10
DX: M54.41 Lumbago with sciatica, right side (principal); J45.909 Unspecified asthma, uncomplicated; Z88.0 Allergy status to penicillin; Z91.018 Allergy to other foods; Z91.048 Other nonmedicinal substance allergy status
CPT/HCPCS: 72110; 96372; 99212; G0463; J1885

== ENCOUNTER 2018-09-23 14:03 | Emergency (ER) | payer BC ==
--- NOTE | 2018-09-23 14:12 | ED ---
Back Pain - HPI Summary HPI Summary: Pt sent from for lumbar radiculopathy. Injured yesterday while bending over to tie shoes - pain is in central sacral area and radiates into lateral and anterior thigh on Rt. Denies numbness, tingling, weakness or change in bowel/ bladder habits. Had fiance rub her back last night w/o relief. Also tried norco , ibuprofen, percocet and flexeril last night w/o relief. 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 DOes admit to h/o migraine, anxiety and depression. At , she had a lumbar XR which reveals no fx, no dislocation. Received toradol IM at w/o relief and declined PO meds. Here for pain relief. ISTOP Reference #: [id number] - does not reveal narcotics nor benzos filled in any state despite pt reports of rx for norco, percocet, ativan - History of Current Complaint Chief Complaint: EDBackInjuryPain Stated Complaint: SEVERE BACK PAIN Time Seen by Provider: 09/23/18 14:05 Hx Obtained From: Patient Hx Last Menstrual Period: August 27, 2018 Pain Intensity: 9 - Allergies/Home Medications Allergies/Adverse Reactions: Allergies Allergy/AdvReac Type Severity Reaction Status Date / Time amoxicillin Allergy Intermediate Rash Verified 09/23/18 14:09 mushroom Allergy See Comment Verified 09/23/18 14:09 hay Allergy Hives Uncoded 09/23/18 12:20 PMH/Surg Hx/FS Hx/Imm Hx Previously Healthy: Yes Endocrine/Hematology History: Denies: Hx Anticoagulant Therapy, Hx Blood Disorders, Hx Diabetes, Hx Thyroid Disease, Autoimmune Disease Cardiovascular History: Denies: Hx Hypercholesterolemia, Hx Hypertension, Hx Pacemaker/ICD, Hx Peripheral Vascular Disease Respiratory History: Reports: Hx Asthma - INHALER AVAILABLE, USUALLY REST, DARK ROOM , NO MEDS, Other Respiratory Problems/Disorders - dermatitis GI History: Reports: Hx Gastroesophageal Reflux Disease - TRYS TO CONTROLL TRIGGERS: DIET, OTC MEDS, Other GI Disorders - Hx OF Gastritis History: Reports: Hx Kidney Stones - Hx OF, LAST WAS 12/2016, PASSES ON OWN Denies: Hx Renal Disease Musculoskeletal History: Reports: Hx Back Problems - recurrent back strains, Hx Orthopedic Injury - knees, Hx Tendonitis - Hx RT ARM/SHOULDER, NO Sx DURING 2017 , Other Musculoskeletal History - morocho splints, Rt ankle sprain Denies: Hx Arthritis, Hx Osteoporosis Sensory History: Reports: Hx Contacts or Glasses - WEARS CONTACTS, WILL WEAR GLASSES DAY OF SURGERY Denies: Hx Cataracts, Hx Glaucoma, Hx Hearing Aid Opthamlomology History: Reports: Hx Contacts or Glasses - WEARS CONTACTS, WILL WEAR GLASSES DAY OF SURGERY Denies: Hx Cataracts, Hx Glaucoma Neurological History: Reports: Hx Migraine - 1-2/WEEK, NO MEDS, DARK ROOM, RESTS Denies: Hx Headaches, Hx Seizures, Hx Transient Ischemic Attacks (TIA) Psychiatric History: Reports: Hx Anxiety - pt reports she takes ativan at home, Hx Depression Denies: Hx Panic Disorder - Surgical History Surgery Procedure, Year, and Place: REMOVAL OF EMBEDDED IUD IN CERVIX Infectious Disease History: No Infectious Disease History: Denies: Hx Clostridium Difficile, Hx Hepatitis, Hx Human Immunodeficiency Virus (HIV), Hx of Known/Suspected MRSA, Hx Shingles, Hx Tuberculosis, Hx Known/ Suspected VRE, Hx Known/Suspected VRSA, History Other Infectious Disease, Traveled Outside the [place] in Last 30 Days - Family History Known Family History: Positive: Hypertension, Diabetes - Social History 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, 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, 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 Lives: With Family - fiance Alcohol Use: Rare Alcohol Amount: 1-2 DRINKS/MONTH Hx Substance Use: No Substance Use Type: Reports: None, Prescribed - pt denies Hx Tobacco Use: No Smoking Status (MU): Never Smoked Tobacco Have You Smoked in the Last Year: No Review of Systems Constitutional: Negative Gastrointestinal: Negative Genitourinary: Negative Positive: Arthralgia Skin: Negative Neurological: Negative Psychological: Normal All Other Systems Reviewed And Are Negative: Yes Physical Exam Triage Information Reviewed: Yes Vital Signs On Initial Exam: Initial Vitals Temp Pulse Resp BP Pulse Ox 97.9 F 77 16 129/56 98 09/23/18 14:06 09/23/18 14:06 09/23/18 14:06 09/23/18 14:06 09/23/18 14:06 Vital Signs Reviewed: Yes Appearance: Positive: Well-Appearing, Well-Nourished, Pain Distress - no pain while sitting upright on stretcher - pain w/ B/L SLR Skin: Positive: Warm, Skin Color Reflects Adequate Perfusion, Dry Head/Face: Positive: Normal Head/Face Inspection Eyes: Positive: EOMI ENT: Positive: Hearing grossly normal Respiratory/Lung Sounds: Positive: Breath Sounds Present Cardiovascular: Positive: Pulses are Symmetrical in both Upper and Lower Extremities. Negative: Leg Edema Left, Leg Edema Right Musculoskeletal: Positive: Strength/ROM Intact, Pain @ - + B/L SLR Neurological: Positive: Normal, Sensory/Motor Intact, Alert, Oriented to Person Place, Time, CN Intact II-III, Other - neg saddle paresthesia Psychiatric: Positive: Anxious - [place] Coma Scale Best Eye Response: 4 - Spontaneous Best Motor Response: 6 - Obeys Commands Best Verbal Response: 5 - Oriented Coma Scale Total: 15 Diagnostics - Vital Signs Vital Signs Temp Pulse Resp BP Pulse Ox 09/23/18 14:06 97.9 F 77 16 129/56 98 - Laboratory Lab Statement: Any lab studies that have been ordered have been reviewed, and results considered in the medical decision making process. Back Pain Course/Dx - Course Course Of Treatment: Pt presents w/ what may be inflammation, disc displacement causing nerve irritation. She has already tried norco, percocet, ibuprofen and flexeril at home prior to arrival. Received IM toradol at and reports no relief. Discussed plan to provide different muscle relaxer (ativan) and solumedrol w/ outpt course over next 5 days and close f/u w/ PCP. Pt reports she 's going back to [place] after the holidays and PCP is here in [place] - if sx persist , advised staying in tonw to f/u w/ PCP in the event she needs PT, MRI, etc. Reviewed danger s/sx of when to return to ED. Pt agrees w/ plan. - Diagnoses Provider Diagnoses: Lumbar radiculopathy Discharge - Sign-Out/Discharge Documenting (check all that apply): Patient Departure - Discharge Plan Condition: Stable Disposition: HOME Prescriptions: predniSONE TAB* [Deltasone 20 MG TAB*] 60 mg PO DAILY #15 tab Patient Education Materials: Lumbar Radiculopathy (ED) Forms: *Work Release Referrals: Mirtha Sigala MD [Primary Care Provider] - Additional Instructions: Rest Stay hydrated Alternate heat with gentle stretches and ice - you may also perform isometric abdominal exercises to aid in supporting back muscles Continue NSAID (may be ibuprofen 800mg every 8 hours with food OR naproxen 500mg every 12 hours with food) May also try extra strength tylenol every 6 hours Complete prednisone as directed Follow-up with PCP this week - call tomorrow to schedule an appointment *If in the meantime you develop numbness, tingling, weakness or change in bowel/ bladder habits, return to the ED - Billing Disposition and Condition Condition: STABLE Disposition: Home
[2018-09-23] MEDS ORDERED: LORazepam TAB(*) 1 MG PO ONE (14:29)
[2018-09-23] MEDS ORDERED: methylPREDNISolone SOD 40 MG* 1 ML VIAL IM ONE (14:30)
[2018-09-23 14:56] VITALS: BP 113/46
== END 2018-09-23 14:55 | disposition home or self-care (01) ==
LOC: ED 14:03
DX: M54.16 Radiculopathy, lumbar region (principal); M54.9 Dorsalgia, unspecified; Z88.0 Allergy status to penicillin
CPT/HCPCS: 96372; 99282; A9270-GY; J2920

== ENCOUNTER 2019-11-26 13:00 | Emergency (ER) | payer BC ==
[2019-11-26] MEDS ORDERED: NS 0.9% 1000 ML** 1,000 ML IV ONE (13:02)
[2019-11-26] MEDS ORDERED: methylPREDNISolone 125 MG* 2 ML VIAL IV ONE (13:02)
[2019-11-26] MEDS ORDERED: Albuterol 2.5 MG/3 ML NEB.SOL* (0.083%) INH ONE (13:02)
[2019-11-26] MEDS ORDERED: diPHENhydraMINE IV* 50 MG/ML 1 ml VIAL (BENADRYL) IV ONE (13:02)
[2019-11-26] MEDS ORDERED: EPINEPHRINE 1 MG/ML 1 ML VIAL IM ONE (13:02)
[2019-11-26] MEDS ORDERED: Famotidine IV* 10 MG/ML 2 ML (20 mg) IV SLOW PU ONE (13:02)
[2019-11-26] MEDS ORDERED: diPHENhydraMINE IV* 50 MG/ML 1 ml VIAL (BENADRYL) ONE (13:05)
[2019-11-26] MEDS ORDERED: methylPREDNISolone 125 MG* 2 ML VIAL ONE ×2 (13:06→13:07)
--- NOTE | 2019-11-26 13:06 | ED ---
Allergic Reaction/Systemic - HPI Summary HPI Summary: 23-year-old female presents with potentially allergic reaction today. States that she ate mushrooms. States that she immediately developed shortness of breath and chest pain. She states that she feels itchy all over. Denies any vomiting or nausea. no abdominal pain. States this has happened before but never this severe. She denies taking anything for her symptoms. She is audibly wheezing. she admits to slight sore throat. - History of Current Complaint Chief Complaint: EDAllergicReaction Time Seen by Provider: 11/26/19 13:02 Hx Last Menstrual Period: August 27, 2018 - Allergies/Home Medications Allergies/Adverse Reactions: Allergies Allergy/AdvReac Type Severity Reaction Status Date / Time amoxicillin Allergy Intermediate Rash Verified 11/26/19 13:12 mushroom Allergy See Comment Verified 11/26/19 13:12 hay Allergy Hives Uncoded 11/26/19 13:12 Home Medications: Home Medications Fexofenadine/Pseudoephedrine [Chioma-D 24 Hour Tablet] 1 tab PO BEDTIME [History Confirmed 11/26/19] Albuterol HFA INHALER* [Ventolin HFA Inhaler*] 1 puff PO Q6H PRN 04/23/17 [ History Confirmed 11/26/19] LORazepam TAB(*) [Ativan 1 MG TAB (*)] 1 mg PO Q8H PRN #20 tab MDD 3 07/02/17 [ Rx Confirmed 11/26/19] Sertraline HCl [Zoloft] 150 mg PO DAILY 09/23/18 [History Confirmed 11/26/19] Cholecalciferol TAB* [Vitamin D TAB*] 2,000 units PO DAILY 11/26/19 [History Confirmed 11/26/19] Cyanocobalamin TAB* [Vitamin B12 TAB*] 1,000 mcg PO DAILY 11/26/19 [History Confirmed 11/26/19] EPINEPHrine [Epipen] 0.3 mg IJ ONCE #1 auto.injct 11/26/19 [Rx] Erenumab-Aooe [Aimovig Autoinjector] 70 mg IM MONTHLY 11/26/19 [History Confirmed 11/26/19] Etonogestrel [Nexplanon] 68 mg IMPLANT SEE INSTRUCTIONS 11/26/19 [History Confirmed 11/26/19] Famotidine TAB* [Pepcid 20 MG TAB*] 20 mg PO BID #9 tab 11/26/19 [Rx] Montelukast Sodium TAB* [Singulair TAB*] 10 mg PO DAILY 11/26/19 [History Confirmed 11/26/19] hydrOXYzine HCL TAB* [Atarax 25 MG TAB*] 25 mg PO QID #10 tab 11/26/19 [Rx] predniSONE 50 mg TAB [Deltasone 50 mg TAB] 50 mg PO DAILY #4 tab 11/26/19 [Rx] PMH/Surg Hx/FS Hx/Imm Hx Endocrine/Hematology History: Denies: Hx Anticoagulant Therapy, Hx Blood Disorders, Hx Diabetes, Hx Thyroid Disease Cardiovascular History: Denies: Hx Hypercholesterolemia, Hx Hypertension, Hx Pacemaker/ICD, Hx Peripheral Vascular Disease Respiratory History: Reports: Hx Asthma - INHALER AVAILABLE, USUALLY REST, DARK ROOM , NO MEDS, Other Respiratory Problems/Disorders - dermatitis GI History: Reports: Hx Gastroesophageal Reflux Disease - TRYS TO CONTROLL TRIGGERS: DIET, OTC MEDS, Other GI Disorders - Hx OF Gastritis History: Reports: Hx Kidney Stones - Hx OF, LAST WAS 12/2016, PASSES ON OWN Denies: Hx Renal Disease Musculoskeletal History: Reports: Hx Back Problems - recurrent back strains, Hx Orthopedic Injury - knees, Hx Tendonitis - Hx RT ARM/SHOULDER, NO Sx DURING 2016 , Other Musculoskeletal History - morocho splints, Rt ankle sprain Denies: Hx Arthritis, Hx Osteoporosis Sensory History: Reports: Hx Contacts or Glasses - WEARS CONTACTS, WILL WEAR GLASSES DAY OF SURGERY Denies: Hx Cataracts, Hx Glaucoma, Hx Hearing Aid Opthamlomology History: Reports: Hx Contacts or Glasses - WEARS CONTACTS, WILL WEAR GLASSES DAY OF SURGERY Denies: Hx Cataracts, Hx Glaucoma Neurological History: Reports: Hx Migraine - 1-2/WEEK, NO MEDS, DARK ROOM, RESTS Denies: Hx Headaches, Hx Seizures, Hx Transient Ischemic Attacks (TIA) Psychiatric History: Reports: Hx Anxiety - pt reports she takes ativan at home, Hx Depression Denies: Hx Panic Disorder - Surgical History Surgery Procedure, Year, and Place: REMOVAL OF EMBEDDED IUD IN CERVIX Infectious Disease History: Denies: Hx Clostridium Difficile, Hx Hepatitis, Hx Human Immunodeficiency Virus (HIV), Hx of Known/Suspected MRSA, Hx Shingles, Hx Tuberculosis, Hx Known/ Suspected VRE, Hx Known/Suspected VRSA, History Other Infectious Disease - Family History Known Family History: Positive: None, Hypertension, Diabetes - Social History Alcohol Use: Rare Alcohol Amount: 1-2 DRINKS/MONTH Hx Substance Use: No Substance Use Type: Reports: None, Prescribed - pt denies Hx Tobacco Use: No Smoking Status (MU): Never Smoked Tobacco Have You Smoked in the Last Year: No Review of Systems Negative: Fever Positive: Chest Pain Positive: Shortness Of Breath All Other Systems Reviewed And Are Negative: Yes Physical Exam Triage Information Reviewed: Yes Vital Signs Reviewed: Yes Appearance: Positive: Well-Appearing Skin: Positive: Warm, Dry Head/Face: Positive: Normal Head/Face Inspection Eyes: Positive: Normal, EOMI, PAULINO, Conjunctiva Clear ENT: Positive: Pharynx normal, TMs normal Respiratory/Lung Sounds: Positive: Breath Sounds Present, Wheezes Cardiovascular: Positive: Normal, RRR Abdomen Description: Positive: Nontender, Soft Bowel Sounds: Positive: Present Musculoskeletal: Positive: Normal Neurological: Positive: Normal Psychiatric: Positive: Normal Procedures - Sedation Patient Received Moderate/Deep Sedation with Procedure: No Re-Evaluation - Re-Evaluation First Eval Re-Evaluation Time: 13:10 Change: Improved Comment: feeling better after epi Second Eval Re-Evaluation Time: 15:16 Change: Improved Comment: lungs CTA Third Eval Re-Evaluation Time: 16:13 Change: Unchanged Comment: normal exam after 3 hours Allergic Reaction Course/Dx - Course Course Of Treatment: 23-year-old female presents with potentially allergic reaction today. States that she ate mushrooms. States that she immediately developed shortness of breath and chest pain. She states that she feels itchy all over. Denies any vomiting or nausea. no abdominal pain. States this has happened before but never this severe. She denies taking anything for her symptoms. She is audibly wheezing. she admits to slight sore throat. On exam wheezing noted. Pharynx normal. Gave epi solumedrol Pepcid and Benadryl with relief. Gave her breathing treatment and lungs CTA. Patient's symptoms resolved. Was here for 3 hours and no repeat symptoms. We'll discharge with EpiPen and hydroxyzine Pepcid and prednisone. Patient understands and agrees the plan. - Diagnoses Differential Diagnosis/HQI/PQRI: Positive: Anaphylaxis, Local Allergic Reaction , Urticaria Provider Diagnoses: Allergic reaction to food, Anaphylactic reaction - Critical Care Time Critical Care Time: 30-74 min - 40 mins Discharge ED - Sign-Out/Discharge Documenting (check all that apply): Patient Departure - Discharge Plan Condition: Good Disposition: HOME Prescriptions: EPINEPHrine [Epipen] 0.3 mg IJ ONCE #1 auto.injct Famotidine TAB* [Pepcid 20 MG TAB*] 20 mg PO BID #9 tab hydrOXYzine HCL TAB* [Atarax 25 MG TAB*] 25 mg PO QID #10 tab predniSONE 50 mg TAB [Deltasone 50 mg TAB] 50 mg PO DAILY #4 tab Patient Education Materials: Anaphylaxis (ED) Forms: *Work Release Referrals: Mirtha Sigala MD [Primary Care Provider] - Additional Instructions: Take Benadryl every 6 hours at night and hydroxyzine during the day every 6 hours Take Pepcid twice a day for 4 days Take steroid once a day for 4 days starting tomorrow Return to ED if develop any new or worsening symptoms - Billing Disposition and Condition Condition: GOOD Disposition: Home
--- OUTSIDE RECORDS SUMMARY | 2019-11-26 13:32 | XMS REPORT | Continuity of Care Document ---
:1995 External Reference #:[id number] Author Name Beto Keita NP (transmitted by agent of provider Melody Eugene) Address [address], [place] [address] Care Team Providers Name Role Phone Mirtha Sigala MD - Family Care Team Information Funeral Pre Need Consultant [phone] Medicine Problems Description No Information Available Social History Type Date Description Comments Sex Unknown ETOH Use Occasionally consumes alcohol Tobacco Use Start: Unknown Patient has never smoked Recreational Drug Use Denies Drug Use Smoking Status Reviewed: 11/02/19 Patient has never smoked Exercise Type/Frequency Exercises regularly swimming 2 days per week- 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 Montelukast Sodium 1 by mouth every Unknown 10mg day Tablets Sertraline HCL 1 1/2 tabs by Unknown 100mg mouth every day Tablets Vitamin B12 1 by mouth every Unknown 1000mcg Tablets day ER Rizatriptan Benzoate 1 by mouth at Unknown 10mg onset of Tablets migraine, may repeat after 2 hours max 2/day max 2 days/week Nexplanon inserted 03/2017 Unknown 68mg Implant Proair HFA 2 puffs every 4 Unknown 108(90Base) hours as needed mcg/Act Aerosol Fexofenadine HCL 1 by mouth every Unknown 180mg day Tablets Lorazepam as needed Unknown 1mg Tablets Melatonin 1-2 cap at Unknown 5mg Capsules bedtime Vitamin D3 1 by mouth every Unknown 2000Unit day Capsules History Medications Immunizations Description No Information Available Vital Signs Date Vital Result Comment 11/02/2019 8:38am Height 66 inches 5'6" Weight 205.00 lb Heart Rate 74 /min BP Systolic 140 mmHg BP Diastolic 78 mmHg BMI (Body Mass Index) 33.1 kg/m2 08/17/2019 8:36am Height 66 inches 5'6" Weight 210.38 lb Heart Rate 78 /min BP Systolic Sitting 146 mmHg BP Diastolic Sitting 74 mmHg Respiratory Rate 18 /min BMI (Body Mass Index) 34.0 kg/m2 Results Test Acquired Date Facility Test Result H/L Range Note CBC Auto 10/20/2019 [facility] White Blood 6.8 10^3/uL Normal 3.5-10.[address] Count [place], [place] [id number] [phone] Red Blood Count 4.48 10^6/uL Normal 3.70-4.87 Hemoglobin 13.5 g/dL Normal 12.0-16.0 Hematocrit 39 % Normal 35-47 Mean Corpuscular Volume 88 fL Normal 80-97 Mean Corpuscular Hemoglobin 30 pg Normal 27-31 Mean Corpuscular HGB Conc 34 g/dL Normal 31-36 Red Cell Distribution Width 13 % Normal 10-15 Platelet Count 194 10^3/uL Normal 150-450 Mean Platelet Volume 9.5 fL Normal 7.4-10.4 Abs Neutrophils 3.6 10^3/uL Normal 1.5-7.7 Abs Lymphocytes 2.5 10^3/uL Normal 1.0-4.8 Abs Monocytes 0.4 10^3/uL Normal 0-0.8 Abs Eosinophils 0.2 10^3/uL Normal 0-0.6 Abs Basophils 0.0 10^3/uL Normal 0-0.2 Abs Nucleated RBC 0.0 10^3/uL Granulocyte % 54.0 % Lymphocyte % 37.2 % Monocyte % 6.0 % Eosinophil % 2.5 % Basophil % 0.3 % Nucleated Red Blood Cells % 0.1 Comp Metabolic 10/20/2019 [facility] Sodium 140 mmol/L Normal 135-[address] [place] [address] [phone] Potassium 4.2 mmol/L Normal 3.5-5.0 Chloride 107 mmol/L Normal 101-111 Co2 Carbon Dioxide 26 mmol/L Normal 22-32 Anion Gap 7 mmol/L Normal 2-11 Glucose 80 mg/dL Normal 70-100 Blood Urea Nitrogen 11 mg/dL Normal 6-24 Creatinine 1.03 mg/dL High 0.51-0.95 BUN/Creatinine Ratio 10.7 Normal 8-20 Calcium 9.1 mg/dL Normal 8.6-10.3 Total Protein 6.9 g/dL Normal 6.4-8.9 Albumin 4.5 g/dL Normal 3.2-5.2 Globulin 2.4 g/dL Normal 2-4 Albumin/Globulin Ratio 1.9 Normal 1-3 Total Bilirubin 0.50 mg/dL Normal 0.2-1.0 Alkaline Phosphatase 61 U/L Normal 34-104 Alt 13 U/L Normal 7-52 Ast 17 U/L Normal 13-39 Egfr Non- 65.8 >60 Egfr 79.7 >60 1 Laboratory test 10/20/2019 [facility] Magnesium 1.9 Normal 1.9 -2.[address] mg/dL [place], [place] [id number] [phone] Urine 10/17/2019 [facility] Urine 72 2, Metanephrines [address] Metanephrine mcg/24h 3 24HR [place], [place] [address] [phone] Urine Normetanephrine 179 mcg/24h 4 Urine Total Metanephrines 251 mcg/24h 5 Urine Collection Duration 24 h Urine Volume 1050 mL 6 Catecholamine 24HR 10/17/2019 [facility] Urine Collection 24 h Urine Fract [address] [place] [address] [phone] Urine Total Volume 1050 mL Urine Norepinephrine 32 mcg/24h 15-80 Urine Epinephrine 3.3 mcg/24h <21 Urine Dopamine 261 mcg/24h 65-400 7 Cortisol Free 10/17/2019 [facility] Urine Free 13 mcg/24h 3.5 -[address] [place] [address] [phone] Urine Collection Duration 24 h Urine Total Volume 1050 mL 8 Laboratory test finding 07/09/2019 [facility] Cortisol 3.60 g/ dL [address] [place] [address] [phone] Estradiol 202 pg/mL 10 Acth 16 pg/mL 11 Tryptase 14.1 ng/mL Abnormal <11.5 12 Insulin-Like Growth 07/09/2019 [facility] Insulin like 241 ng/ mL 73-[address] [place] [address] I [phone] Igf1 Z-score 1.04 SD 13 1 Because ethnic data is not always readily available, this report includes an eGFR for both -Americans and non- Americans. The National Kidney Disease Education Program (NKDEP) does not endorse the use of the MDRD equation for patients that are not between the ages of 18 and 70, are , have extremes of body size, muscle mass, or nutritional status, or are non- or non-. According to the National Kidney Foundation, irrespective of diagnosis, the stage of the disease is based on the level of kidney function: Stage Description GFR(mL/min/1.73 m(2)) 1 Kidney damage with normal or decreased GFR 90 2 Kidney damage with mild decrease in GFR 60-89 3 Moderate decrease in GFR 30-59 4 Severe decrease in GFR 15-29 5 Kidney failure <15 (or dialysis) 2 SEAN 10/16 AT 1015 TO 10/17 AT 1015 3 REFERENCE VALUE 30-180 (Normotensive) <400 (Hypertensive) 4 REFERENCE VALUE 103-390 (Normotensive) <900 (Hypertensive) 5 REFERENCE VALUE 145-510 (Normotensive) <1300 (Hypertensive) 6 ADDITIONAL INFORMATION This test was developed and its performance characteristics determined by [facility] in a manner consistent with CLIA requirements. This test has not been cleared or approved by the U.S. Food and Drug Administration. Test Performed by: [facility] [place] [address] Lawn Mower Repairer: Curtis Nuñez M.D. Ph.D.; CLIA# [id number] 7 ADDITIONAL INFORMATION This test was developed and its performance characteristics determined by [facility] in a manner consistent with CLIA requirements. This test has not been cleared or approved by the U.S. Food and Drug Administration. Test Performed by: [facility] [place] [address] Lawn Mower Repairer: Curtis Nuñez M.D. Ph.D.; CLIA# [id number] 8 ADDITIONAL INFORMATION This test was developed and its performance characteristics determined by [facility] in a manner consistent with CLIA requirements. This test has not been cleared or approved by the U.S. Food and Drug Administration. Test Performed by: [facility] [place] [address] Lawn Mower Repairer: Curtis Nuñez M.D. Ph.D.; CLIA# [id number] 9 AM 8.7-22.4 PM <10 10 Estradiols <40 pg/mL are sent to a reference lab for low range testing. Postmenopausal Females < 20 Ovulating females: by day in cycle relative to LH Peak Follicular phase - 12 10-50 - 4 60-200 Mid-cycle - 1 120-375 Luteal phase + 2 50-155 + 6 60-260 + 12 15-115 11 REFERENCE VALUE 7.2-63 (a.m. collection) Test Performed by: [facility] [place] [address] Lawn Mower Repairer: Curtis Nuñez M.D. Ph.D.; CLIA# [id number] 12 Test Performed by: [facility] [place] [address] Lawn Mower Repairer: Curtis Nuñez M.D. Ph.D.; CLIA# [id number] 13 REFERENCE VALUE -2.0 - +2.0 ADDITIONAL INFORMATION This test was developed and its performance characteristics determined by [facility] in a manner consistent with CLIA requirements. This test has not been cleared or approved by the U.S. Food and Drug Administration. Test Performed by: [facility] [place] [address] Lawn Mower Repairer: Curtis Nuñez M.D. 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 Office Visit 07/09/2019 [facility] Reagan Coch, R61 Generalized 11:00a [facility] hyperhidrosis R63.5 Abnormal weight gain Assessments Date Code Description Provider 11/02/2019 G43.009 Migraine without aura, not intractable, without Beto Keita NP status migrainosus 08/17/2019 G43.009 Migraine without aura, not intractable, without Beto Keita NP status migrainosus 07/09/2019 R61 Generalized hyperhidrosis Tez Velasco MD 07/09/2019 R63.5 Abnormal weight gain Tez Velasco MD Plan of Treatment Future Appointment(s):01/05/2020 4:00 pm - Beto Keita NP at [facility]11/02/2019 - Beto Keita, ERIKAG43.009 Migraine without aura, not intractable, without status migrainosusNew Medication:Aimovig 70 mg/ ml - inject sq once a monthFollow up:2-3 MONTHSRecommendations:OK to continue to Rizatriptan at 10 mg. Take Metoclopramide 5 mg along with Rizatriptan 10 mg at the start of your headache for migraine-induced nausea. Functional Status Description No Information Available Mental Status Description No Information Available Referrals Description No Information Available
--- OUTSIDE RECORDS SUMMARY | 2019-11-26 13:32 | XMS REPORT | Continuity of Care Document ---
:1995 External Reference #:[id number] Author Name Mirtha Sigala M.D. Address [address] [place] [address] Care Team Providers Name Role Phone Tez Velasco - Endocrinology, Care Team Information Customer Support Executive [phone] Diabetes & Metabolism Problems Description No Information Available Social History Type Date Description Comments Sex Unknown Tobacco Use Start: Unknown Never Smoked Cigarettes ETOH Use Occasionally consumes alcohol less than one Tobacco Use Start: Unknown Patient has never smoked Exercise Type/Frequency Exercises rarely Allergies, Adverse Reactions, Alerts Active Allergies Reaction Severity Comments Date Amoxicillin Moderate rash 07/11/2017 Mushrooms Mild hoarse voice 07/11/2017 Latex Hives Severe 10/16/2019 Medications Active Medications SIG Qnty Indications Ordering Date Provider Rizatriptan Benzoate dissolve 1 tablet 18tabs G43.109 Samiwchiqui Felipe 2018 10mg in mouth at onset Storm, [employer] Tablets Dispers of migraine repeat in 2 hours if needed max monthly-18 Melatonin 1 PO QHS prn Mirtha Virk 05/21/2019 5mg Capsules Insomnia Pankaj Sigala Montelukast Sodium take 1 tablet by 90tabs J45.20 Mirtha Virk 03/20/2018 10mg mouth at bedtime Pankaj Sigala Tablets for allergy nose/ asthma symptoms Sertraline HCL take 1.5 Tablets 135tabs F41.9 Mirtha Virk 09/18/2017 100mg by mouth everyday Pankaj Sigala Tablets as directed For Anxiety Nexplanon inserted 03/2017 Mirtha Virk 07/11/2017 68mg Implant Pankaj Sigala Proair HFA 2 puffs every 4 1units J45.20 Mirtha P. 07/11/2017 108(90Base) hours as needed Blegen, M.D. mcg/Act Aerosol wheezing- may fill with any preferred albuterol inhaler Spacer use as directed 1units J45.20 Mirtha P. 07/11/2017 for inahler Blegen, M.D. Fexofenadine HCL 1 by mouth every Mirtha P. 07/11/2017 180mg day prn Blegen, M.D. Tablets Allergies/ Urticaria Lorazepam 1 PO QHS And Up 20tabs Mirtha P. 1mg Tablets To bid prn Blegen, M.D. Anxiety, Causes Drowsiness Metoclopramide HCL Dis 1 To 2 TS On Unknown 5mg The Tongue D PRF Tablets Dispers Nausea Vitamin B-12 1 by mouth every Unknown 1000mcg day- sublingual- Tablets for vitamin b12 deficiency Vitamin D3 Unknown 250mcg (43203 Ut) Capsules Aimovig Unknown 70mg/ml Solution Auto-Inject History Medications Topiramate 1 PO qam/ 2 PO QHS 90tabs Mirtha Virk 06/22/2019 - 25mg Tablets For Migraine Blegen, M.D. 11/02/2019 Prevention Clindamycin Phosphate one applicator into 40gm Mirtha Virk 05/24/2019 - vaginal canal Blegen, M.D. 06/21/2019 2% Cream before bed for 7 days Topamax Mirtha Virk 05/21/2019 - 25mg Tablets Blegen, M.D. 05/21/2019 Immunizations CPT Code Status Date Vaccine Lot # [id number] Given 07/09/2019 Influenza Virus Vaccine, Quadrivalent, 3 Yr > Quad, Preserv Free 07327 Given 06/25/2019 Influenza Virus Vaccine, Quadrivalent, 3 Yr > Quad, Preserv Free 93774 Given 07/16/2018 Influenza Virus Vaccine, Quadrivalent, 3 Yr > Quad, Preserv Free 57021 Given 09/12/2017 Influenza Virus Vaccine, Quadrivalent, 3 Yr > Quad, Preserv Free 22631 Given 05/31/2009 Tdap (Adacel) 16681 Given 12/25/1999 Opv (Poliovirus,Oral) 12438 Given 12/25/1999 MMR (Measles,Mumps,Rubella) 55667 Given 12/25/1999 DTaP (Daptacel) 30877 Given 06/22/1996 MMR (Measles,Mumps,Rubella) 83607 Given 06/22/1996 DPT & Hib Vaccine, Combined 17238 Given 06/24/1995 Pediatric Hepatitis B Vaccine 11897 Given 06/24/1995 DPT & Hib Vaccine, Combined 98199 Given 06/24/1995 Opv (Poliovirus,Oral) 50841 Given 04/22/1995 DPT & Hib Vaccine, Combined 31463 Given 04/22/1995 Opv (Poliovirus,Oral) 49859 Given 02/14/1995 Pediatric Hepatitis B Vaccine 68127 Given 02/14/1995 DPT & Hib Vaccine, Combined 48248 Given 02/14/1995 Opv (Poliovirus,Oral) Vital Signs Date Vital Result Comment 11/02/2019 11:16am Weight 206.00 lb Weight 93.442 kg BP Systolic 122 mmHg BP Diastolic 78 mmHg Heart Rate 74 /min Body Temperature 98.1 F Respiratory Rate 16 /min O2 % BldC Oximetry 98 % 10/16/2019 11:00am Weight 202.00 lb Weight 91.627 kg BP Systolic 118 mmHg BP Diastolic 68 mmHg Heart Rate 80 /min Body Temperature 97.7 F Respiratory Rate 16 /min Height 67.5 inches 5'7.50" BMI (Body Mass Index) 31.2 kg/m2 Right Visual Acuity Distance 20/50 Left Visual Acuity Distance 20/40 Both Visual Acuity Distance 20/40 With corrective lenses. Last Menstrual Period 4424297 O2 % BldC Oximetry 98 % Results Test Acquired Date Facility Test Result H/L Range Note Comp Metabolic 11/02/2019 [facility] Sodium 137 mmol/ L Normal 135-145 Panel [phone] Potassium 3.9 mmol/L Normal 3.5-5.0 Chloride 105 mmol/L Normal 101-111 Co2 Carbon Dioxide 24 mmol/L Normal 22-32 Anion Gap 8 mmol/L Normal 2-11 Glucose 83 mg/dL Normal 70-100 Blood Urea Nitrogen 10 mg/dL Normal 6-24 Creatinine 0.86 mg/dL Normal 0.51-0.95 BUN/Creatinine Ratio 11.6 Normal 8-20 Calcium 9.2 mg/dL Normal 8.6-10.3 Total Protein 7.1 g/dL Normal 6.4-8.9 Albumin 4.5 g/dL Normal 3.2-5.2 Globulin 2.6 g/dL Normal 2-4 Albumin/Globulin Ratio 1.7 Normal 1-3 Total Bilirubin 0.50 mg/dL Normal 0.2-1.0 Alkaline Phosphatase 73 U/L Normal 34-104 Alt 13 U/L Normal 7-52 Ast 18 U/L Normal 13-39 Egfr Non- 81.1 >60 Egfr 98.1 >60 1 Laboratory 11/02/2019 [facility] TSH (Thyroid 2.64 Normal 0.34-5.60 2 test finding [phone] Stim Horm) mcIU/mL Free T4 (Free Thyroxine) 0.78 ng/dL Normal 0.61-1.12 3 Thyroperoxidase AB 2.24 IU/mL Normal <9 4 Laboratory test 11/02/2019 [facility] Erythrocyte Sed <pending> finding [phone] Rate C Reactive Protein 2.25 mg/L Normal <8.01 5 Comp Metabolic 10/20/2019 [facility] Sodium 140 mmol/ L Normal 135-145 Panel [phone] Potassium 4.2 mmol/L Normal 3.5-5.0 Chloride 107 [...] Egfr Non- 65.8 >60 Egfr 79.7 >60 6 CBC Auto 10/20/2019 [facility] White Blood 6.8 10^3/ uL Normal 3.5-10.8 Diff [phone] Count Red Blood Count 4.48 10^6/uL Normal 3.70-4.87 [...] % Nucleated Red Blood Cells % 0.1 Laboratory test 10/20/2019 [facility] Magnesium 1.9 mg/dL Normal 1.9-2.7 finding [phone] Cortisol Free 10/17/2019 [facility] Urine Free 13 3.5-45 7 24HR Urine [phone] Cortisol mcg/24h Urine Collection Duration 24 h Urine Total Volume 1050 mL 8 Catecholamine 24HR 10/17/2019 [facility] Urine Collection 24 h Urine Fract [phone] Duration Urine Total Volume 1050 mL Urine Norepinephrine 32 mcg/24h 15-80 Urine Epinephrine 3.3 mcg/24h <21 Urine Dopamine 261 mcg/24h 65-400 9 Urine Metanephrines 10/17/2019 [facility] Urine 72 mcg/24h 10 24HR [phone] Metanephrine Urine Normetanephrine 179 mcg/24h 11 Urine Total Metanephrines 251 mcg/24h 12 Urine Collection Duration 24 h Urine Volume 1050 mL 13 Basic Metabolic 08/04/2019 [facility] Sodium 139 mmol /L Normal 135-145 Panel [phone] Potassium 4.5 mmol/L Normal 3.5-5.0 Chloride 107 mmol/L Normal 101-111 Co2 Carbon Dioxide 27 mmol/L Normal 22-32 Anion Gap 5 mmol/L Normal 2-11 Glucose 106 mg/dL High 70-100 Blood Urea Nitrogen 11 mg/dL Normal 6-24 Creatinine 1.08 mg/dL High 0.51-0.95 BUN/Creatinine Ratio 10.2 Normal 8-20 Calcium 9.6 mg/dL Normal 8.6-10.3 Egfr Non- 62.3 >60 Egfr 75.4 >60 14 Laboratory test 07/09/2019 [facility] Cortisol 3.60 g/dL 15 finding [phone] Estradiol 202 pg/mL 16 Acth 16 pg/mL 17 Tryptase 14.1 ng/mL Abnormal <11.5 18 Insulin-Like Growth 07/09/2019 [facility] Insulin like 241 ng/mL 73-320 Factor 4 [phone] Growth Factor I Igf1 Z-score 1.04 SD 19 Laboratory test 05/21/2019 [facility] Culture Genital & SEE RESULT 20 finding [phone] Sensitivity BELOW Laboratory test 05/21/2019 [facility] Cytology SEE RESULT 21 finding [phone] BELOW Lipid Profile 05/21/2019 [facility] Triglycerides 158 mg/dL 22 (Trig/Chol/HDL) [phone] Cholesterol 155 mg/dL 23 HDL Cholesterol 32.7 mg/dL 24 LDL Cholesterol 91 mg/dL 25 CBC Auto 05/21/2019 [facility] White Blood 6.6 10^3/ uL Normal 3.5-10.8 Diff [phone] Count Red Blood Count 4.85 10^6/uL Normal 3.70-4.87 Hemoglobin 14.5 g/dL Normal 12.0-16.0 Hematocrit 43 % Normal 35-47 Mean Corpuscular Volume 88 fL Normal 80-97 Mean Corpuscular Hemoglobin 30 pg Normal 27-31 Mean Corpuscular HGB Conc 34 g/dL Normal 31-36 Red Cell Distribution Width 12 % Normal 10-15 Platelet Count 227 10^3/uL Normal 150-450 Mean Platelet Volume 9.4 fL Normal 7.4-10.4 Abs Neutrophils 4.1 10^3/uL Normal 1.5-7.7 Abs Lymphocytes 2.0 10^3/uL Normal 1.0-4.8 Abs Monocytes 0.4 10^3/uL Normal 0-0.8 Abs Eosinophils 0.1 10^3/uL Normal 0-0.6 Abs Basophils 0.0 10^3/uL Normal 0-0.2 Abs Nucleated RBC 0.0 10^3/uL Granulocyte % 62.4 % Lymphocyte % 29.8 % Monocyte % 5.8 % Eosinophil % 1.3 % Basophil % 0.7 % Nucleated Red Blood Cells % 0.1 Comp Metabolic 05/21/2019 [facility] Sodium 139 mmol/ L Normal 135-145 Panel [phone] Potassium 4.5 mmol/L Normal 3.5-5.0 Chloride 107 mmol/L Normal 101-111 Co2 Carbon Dioxide 25 mmol/L Normal 22-32 Anion Gap 7 mmol/L Normal 2-11 Glucose 93 mg/dL Normal 70-100 Blood Urea Nitrogen 8 mg/dL Normal 6-24 Creatinine 0.91 mg/dL Normal 0.51-0.95 BUN/Creatinine Ratio 8.8 Normal 8-20 Calcium 9.5 mg/dL Normal 8.6-10.3 Total Protein 6.9 g/dL Normal 6.4-8.9 Albumin 4.4 g/dL Normal 3.2-5.2 Globulin 2.5 g/dL Normal 2-4 Albumin/Globulin Ratio 1.8 Normal 1-3 Total Bilirubin 0.50 mg/dL Normal 0.2-1.0 Alkaline Phosphatase 67 U/L Normal 34-104 Alt 18 U/L Normal 7-52 Ast 19 U/L Normal 13-39 Egfr Non- 76.0 >60 Egfr 91.9 >60 26 Laboratory 05/21/2019 [facility] TSH (Thyroid 1.90 Normal 0.34-5.60 27 test finding [phone] Stim Horm) mcIU/mL Free T4 (Free Thyroxine) 0.88 ng/dL Normal 0.61-1.12 28 T3 Free 4.00 pg/mL High 2.5-3.9 29 Vitamin D Total 25(Oh) 24.4 ng/mL Normal 20-50 30 Vitamin B12 201 pg/mL Normal 180-914 31 Hemoglobin A1c (Glyco HGB) 5.1 % Normal 4.0-5.6 32 1 Because ethnic data is not always [...] 5 Kidney failure <15 (or dialysis) 2 [id number] 3 [id number] 4 [id number] 5 [id number] 6 Because ethnic data is not always readily [...] 15-29 5 Kidney failure <15 (or dialysis) 7 SEAN 10/16 AT 1015 TO 10/17 AT 1015 8 ADDITIONAL INFORMATION This test was developed and its performance characteristics determined by [facility] in a manner consistent with CLIA requirements. This test has not been cleared or approved by the U.S. Food and Drug Administration. Test Performed by: [facility] [place] [address] Incident Response Specialist: Curtis Nuñez M.D. Ph.D.; CLIA# [id number] 9 ADDITIONAL INFORMATION This test was developed and its performance characteristics determined by [facility] in a manner consistent with CLIA requirements. This test has not been cleared or approved by the U.S. Food and Drug Administration. Test Performed by: [facility] [place] [address] Incident Response Specialist: Curtis Nuñez M.D. Ph.D.; CLIA# [id number] 10 REFERENCE VALUE 30-180 (Normotensive) <400 (Hypertensive) 11 REFERENCE VALUE 103-390 (Normotensive) <900 (Hypertensive) 12 REFERENCE VALUE 145-510 (Normotensive) <1300 (Hypertensive) 13 ADDITIONAL INFORMATION This test was developed and its performance characteristics determined by [facility] in a manner consistent with CLIA requirements. This test has not been cleared or approved by the U.S. Food and Drug Administration. Test Performed by: [facility] [place] [address] Incident Response Specialist: Curtis Nuñez M.D. Ph.D.; CLIA# [id number] 14 Because ethnic data is not always readily [...] 15-29 5 Kidney failure <15 (or dialysis) 15 AM 8.7-22.4 PM <10 16 Estradiols <40 pg/mL are sent to a reference lab for low range testing. Postmenopausal Females < 20 Ovulating females: by day in cycle relative to LH Peak Follicular phase - 12 10-50 - 4 60-200 Mid-cycle - 1 120-375 Luteal phase + 2 50-155 + 6 60-260 + 12 15-115 17 REFERENCE VALUE 7.2-63 (a.m. collection) Test Performed by: [place] [address] Incident Response Specialist: Curtis Nuñez M.D. Ph.D.; CLIA# [id number] 18 Test Performed by: [facility] [place] [address] Incident Response Specialist: Curtis Nuñez M.D. Ph.D.; CLIA# [id number] 19 REFERENCE VALUE -2.0 - +2.0 ADDITIONAL INFORMATION This test was developed and its performance characteristics determined by [facility] in a manner consistent with CLIA requirements. This test has not been cleared or approved by the U.S. Food and Drug Administration. Test Performed by: [facility] [address] [place] [address] Incident Response Specialist: Curtis Nuñez M.D. Ph.D.; CLIA# [id number] 20 SEE RESULT BELOW Name: MICHAEL PÉREZ : [address]: Mirtha Sigala MD Acct: [id number] Unit: [id number] AGE: 23 Location: [facility] Re05/21/19 SEX: F Status: REG REF SPEC: [id number] SEAN: 05/21/19-143 [facility] [address]: Mirtha Sigala MD REQ: [id number] RECD: 05/21/19 STATUS: COMP _ SOURCE: VAGINAL SPDESC: ORDERED: Genital Culture COMMENTS: [id number] Procedure Result Reported Site Genital Culture Final 05/23/19- 1307 ML Organism 1 GARDNERELLA VAGINALIS Quantity 3+ Organism 2 NORMAL CARLOS Quantity 1+ Routine genital cultures do not include selective agar for Neisseria gonorrhoeae. Molecular testing offers better test sensitivity and therefore is the preferred test methodology for identifying this organism. * ML - Main Lab . END OF REPORT DEPARTMENT OF PATHOLOGY, [address] [place] [address] Solo Balderas M.D. Director [facility] # [id number] 21 SEE RESULT BELOW Name: MICHAEL PÉREZ : [address]: Mirtha Sigala MD Acct: [id number] Unit: [id number] AGE: 23 Location: [facility] Re05/21/19 SEX: F Status: REG REF SPEC: [id number] SEAN: 05/21/19-14[address] [facility] [address]: Mirtha Sigala MD REQ: [id number] RECD: 05/21/19876 STATUS: SOUT _ ORDERED: TP IMAGE ANALYS, HPV 16/18 GENE COMMENTS: [id number] Negative for Intraepithelial lesion or Malignancy Shift in carlos suggestive of bacterial vaginosis A. Ectocervical/Endocervical Specimen Adequacy: Satisfactory of evaluation Transformation zone component identified Patient Information: HPV: Thin Layer Pap Test w/reflex to high risk HPV RNA testing when ASCUS HPV 16/18 Genotype Reflex Actual Specimen Date: 05/21/19 Last Menstrual Date: 05/07/19 Spec Date if unknown: unknown ?: N Signed by and Reported on: JOSÉ MIGUEL Esparza (ASCP) [id number] This Pap test was evaluated with the assistance of the [employer] Test Imaging System. Due to cytologic findings at the serging machine operator microscope, comprehensive manual rescreening by a Carbonizer Tester may be required. The Pap Smear is a screening test designed to aid in the detection of premalignant and malignant conditions of the uterine cervix. It is not a diagnostic procedure and should not be used as the sole means of detecting cervical cancer. Both false- positive and false- negative reports do occur. Depending on your risk status, a Pap smear should be obtained and evaluated every 1-3 years. END OF REPORT DEPARTMENT OF PATHOLOGY, [address] [place] [address] Solo Balderas M.D. Director [facility] # [id number] 22 Desirable: <150 Borderline High: 150-199 High: 200-499 Very High: >500 23 Desirable: <200 Borderline High: 200-239 High: >239 24 Low: <40 Desirable: 40-60 High: >60 25 Desirable: <100 Near Optimal: 100-129 Borderline High: 130-159 High: 160-189 Very High: >189 26 Because ethnic data is not always readily [...] 15-29 5 Kidney failure <15 (or dialysis) 27 [id number] 28 [id number] 29 [id number] 30 Total 25-Hydroxyvitamin D2 and D3 (25-OH-VitD) <10 ng/mL (severe deficiency) 10-19 ng/mL (mild to moderate deficiency) 20-50 ng/mL (optimum levels) 51-80 ng/mL (increased risk of hypercalciuria) >80 ng/mL (toxicity possible) 31 Normal Range 180 to 914 Indeterminate Range 145 to 180 Deficient Range <145 32 Therapeutic target for the treatment of diabetes mellitus patients is <7% HBA1C, and in selective patients <6.0%. Please refer to [place] [employer] diabetic care guidelines for further information. Procedures Date Code Description Status 10/16/2019 13164 EKG, at Least 12 Leads w/Interpretation and Report Completed 05/21/2019 69864 EKG, at Least 12 Leads w/Interpretation and Report Completed Medical Devices Description No Information Available Encounters Type Date Location Provider Dx Diagnosis Office Visit 10/16/2019 Main Office Mirtha P. G43.109 Migraine with aura , 11:15a Pankaj Sigala not intractable, w/o status migrainosus R03.0 Elevated blood-pressure reading, w/o diagnosis of htn H53.8 Other visual disturbances R00.2 Palpitations Office Visit 08/04/2019 4:30p Main Office Mirtha Virk G43.109 Migraine with aura, Blegen, M.D. not intractable, w/o status migrainosus F41.9 Anxiety disorder, unspecified Office Visit 06/22/2019 11:45a Main Office Mirtha Virk G43.109 Migraine with aura, Blegen, M.D. not intractable, w/o status migrainosus F41.9 Anxiety disorder, unspecified R21 Rash and other nonspecific skin eruption Office Visit 05/21/2019 11:30a Main Office Mirtha Virk Z00.00 Encntr for Pankaj Sigala general adult medical exam w/o abnormal findings F41.9 Anxiety disorder, unspecified G43.009 Migraine w/o aura, not intractable, w/o status migrainosus J45.20 Mild intermittent asthma, uncomplicated E53.8 Deficiency of other specified B group vitamins E55.9 Vitamin D deficiency, unspecified R61 Generalized hyperhidrosis Z13.220 Encounter for screening for lipoid disorders R10.813 Right lower quadrant abdominal tenderness N76.0 Acute vaginitis R42 Dizziness and giddiness Assessments Date Code Description Provider 11/02/2019 G43.109 Migraine with aura, not intractable, Mirtha Sigala M.D. without status migrainosus 11/02/2019 R03.0 Elevated blood-pressure reading, without Mirtha Sigala M.D. diagnosis of hypertension 11/02/2019 R53.83 Other fatigue Mirtha Sigala M.D. 11/02/2019 M25.50 Pain in unspecified joint Mirtha Sigala M.D. 11/02/2019 J45.909 Unspecified asthma, uncomplicated Mirtha Sigala M.D. 10/16/2019 G43.109 Migraine with aura, not intractable, Mirtha Sigala M.D. without status migrainosus 10/16/2019 R03.0 Elevated blood-pressure reading, without Mirtha Sigala M.D. diagnosis of hypertension 10/16/2019 H53.8 Other visual disturbances Mirtha Sigala M.D. 10/16/2019 R00.2 Palpitations Mirtha Sigala M.D. 08/04/2019 G43.109 Migraine with aura, not intractable, Mirtha Sigala M.D. without status migrainosus 08/04/2019 F41.9 Anxiety disorder, unspecified Mirtha Sigala M.D. 06/22/2019 G43.109 Migraine with aura, not intractable, Mirtha Sigala M.D. without status migrainosus 06/22/2019 F41.9 Anxiety disorder, unspecified Mirtha Sigala M.D. 06/22/2019 R21 Rash and other nonspecific skin eruption Mirtha Sigala M.D. 05/21/2019 Z00.00 Encounter for general adult medical Mirtha Sigala M.D. examination without abnormal findings 05/21/2019 F41.9 Anxiety disorder, unspecified Mirtha Sigala M.D. 05/21/2019 G43.009 Migraine without aura, not intractable, Mirtha Sigala M.D. without status migra 05/21/2019 J45.20 Mild intermittent asthma, uncomplicated Mirtha Sigala M.D. 05/21/2019 E53.8 Deficiency of other specified B group Mirtha Sigala M.D. vitamins 05/21/2019 E55.9 Vitamin D deficiency, unspecified Mirtha Sigala M.D. 05/21/2019 R61 Generalized hyperhidrosis Mirtha Sigala M.D. 05/21/2019 Z13.220 Encounter for screening for lipoid Mirtha Sigala M.D. disorders 05/21/2019 R10.813 Right lower quadrant abdominal tenderness Mirtha Sigala M.D. 05/21/2019 N76.0 Acute vaginitis Mirtha Sigala M.D. 05/21/2019 R42 Dizziness and giddiness Mirtha Sigala M.D. Plan of Treatment 11/02/2019 - Mirtha Sigala M.D.G43.109 Migraine with aura, not intractable , without status migrainosusComments:FOLLOWED WITH NEURO THIS AM, WILL BE TRYING AIMOVIG, OFF THE TOPAMAX WITH RESOLUTION OF NAUSEA SIDE EFFECTS. STILL FEELING INTERMITTENT GENERAL BLURRED VISION EVEN OFF THE TOPAMAX. MRI BRAIN OK 2017. AGAIN ENCOURAGED SEE EYE DOCTOR FOR EVALUATION.Follow up: .Recommendations:-- CONTINUE TO FOLLOW WITH NEURO -- I HOPE THE AIMOVIG WORKS WELLR03.0 Elevated blood-pressure reading, without diagnosis of hypertensionNew Xrays:Vaslab Renal Artery Duplex Bilateral, Ordered: 11/02/19Comments:BP STILL INTERMITTENTLY ELEVATED ELSEWHERE. EVAL FOR PHEOCHROMOCYTOMA NEG. GIVEN HER YOUNG AGE, RECOMMENDED CHECK RENAL ARTERY DOPPLERS. CONTINUE TO WATCH BP. CONSIDER CCB LIKE DILTIAZEM OR BBL LIKE PROPRANOLOL AGAIN IF NEEDED IN FUTURE MAY ALSO HELP MIGRAINES.Follow up:. -- RENAL ARTERY DOPPLERSRecommendations:- - GET THE RENAL ARTERY DOPPLER TO MAKE SURE NO NARROWING IN YOUR KIDNEY ARTERIES CAUSING YOUR BLOODPRESSURE TO BE OKSIZTBGK48.83 Other fatigueComments: THYROID FUNCTION NORMAL IN APRIL, FEELING FATIGUED STILL, WILL RECHECK THYROID FUNCTION. PT THINKS MA WITH HYPOTHYROID AND IS CONCERNED ABOUT HASHIMOTOS. DISCUSSED HASHIMOTOS IS AUTOIMMUNE THYROID D/O, MEANING, MOST COMMON CAUSE OF HYPOTHYROID IN [place], RUNS IN FAMILIES, EVEN IF HAS ABS, USUALLY DON'T DO ANYTHING DIFFERENT UNLESS THYROID FUNCTION ABNORMAL. WILL CHECK THYROPEROXIDASE ABS.Follow up:.Recommendations:-- WE ARE RECHECKING YOUR THYROID FUNCTION BLOODWORK AND CHECKING THYROID ANTIBODIES FOR TING'S.M25.50 Pain in unspecified jointComments:SEEMS TO HAVE SOME HYPERMOBILITY OF JOINTS. ANKLE PAINS LIKELY FROM REPEATED ANKLE SPRAINS IN THE PAST. WILL CHECK RAYNE, CCP AB, SED RATE, CRP. DOES NOT SEEM LIKE LUPUS, WILL CHECK LYME WB SINCE NONSPECIFIC JOINT PAIN SX, THOUGH NO KNOWN TICK BITE. WILL GET CONSULT WITH RHEUMATOLOGY.Follow up:. -- REFER TO RHEUMATOLOGY FOR CONSULT ON MULTIPLE JOINT PAINS, HYPERMOBILE JOINTSRecommendations:-- WE ARE CHECKING YOU FOR LYME AND INFLAMMATORY JOINT DISORDER LIKE RHEUMATOID, LUPUS -- WE WILL CONSIDER HAVING YOU SEE THE EGG PROCESSOR, DR. COOL FOR A CONSULT- YOU SEEM TO HAVE HYPERMOBILE JOINTS WELL WHICH MAY BE CONTRIBUTING TO YOUR ARAYXFG62.909 Unspecified asthma, uncomplicatedComments:GETS ASTHMA SX, UNDER GOOD CONTROL WITH MONTELUKAST, DOES NOT NEED HER ALBUTEROL INHALER REGULARLY. GETS DERMOGRAPHIA, OCCASIONAL URTICARIA, HAS BEEN TO DERM IN THE PAST, CONTROLLED FOR MOST PART WITH FEXOFENADINE/ AMARILIS 180 MG PER DAY. WILL GET CONSULT WITH [facility]. DISCUSSED CHEST PAIN SX SHE GETS IS C/W COSTOCHONDRITIS. CAN USE ICE PRN.Follow up:-- REFER TO [facility] FOR CONSULT ON ASTHMA, INTERMITTENT URTICARIARecommendations:-- WE WILL HAVE YOU SEE THE CLOTHES PRESSER Functional Status Description No Information Available Mental Status Description No Information Available Referrals Refer to Reason for Referral Status Appt Date Erickson Costa MD Referral to neurology for consult on migraines. Closed - - Please contact Pt to schedule appt. - - Please fax appointment date/time to [facility], [phone]. [address] [place] [address] [address] [place] [id number] [phone] Tez Velasco Referral to Dr. Velasco for endocrinology consult for Closed 07/09 excessive sweating, temperature intolerance. - - Please contact Pt to schedule appt. - - PLEASE FAX APPOINTMENT DATE/TIME TO [facility], [phone]. [address] , [address] [place] [id number] [phone]
[2019-11-26 16:22] VITALS: BP 102/59
== END 2019-11-26 16:21 | disposition home or self-care (01) ==
LOC: ED 13:00
DX: T78.09XA Anaphylactic reaction due to other food products, initial encounter (principal); R06.02 Shortness of breath; R07.89 Other chest pain; J45.909 Unspecified asthma, uncomplicated; Z79.51 Long term (current) use of inhaled steroids; K21.9 Gastro-esophageal reflux disease without esophagitis; F41.9 Anxiety disorder, unspecified; Z88.0 Allergy status to penicillin; Z91.018 Allergy to other foods; Z91.048 Other nonmedicinal substance allergy status
CPT/HCPCS: 96361; 96374; 96375; 99283; J1200; J2930

== ENCOUNTER 2021-09-24 17:33 | Inpatient (IN) ==
[2021-09-24 17:54] VITALS: BP 155/93
[2021-09-24 18:40] LABS: ABS Basophils 0.1 10^3/ul (0-0.2); ABS Eosinophils 0.1 10^3/ul (0-0.6); ABS Lymphocytes 1.9 10^3/ul (1.0-4.8); ABS Monocytes 0.6 10^3/ul (0-0.8); ABS Neutrophils 7.2 10^3/ul (1.5-7.7); Eosinophil % 0.8 %; Hematocrit 34 % (35-47); Lymphocyte % 19.4 %; Mean Corpuscular HGB Conc 35 g/dL (31-36); Mean Corpuscular Hemoglobin 31 pg (27-31); Mean Corpuscular Volume 89 fL (80-97); Mean Platelet Volume 9.7 fL (7.4-10.4); Platelet Count 141 10^3/uL (150-450); Red Blood Count 3.83 10^6 /uL (3.70-4.87); Red Cell Distribution Width 13 % (10-15); White Blood Count 9.8 10^3/uL (3.5-10.8)
[2021-09-24 18:42] LABS: Urine Appearance Cloudy; Urine Bilirubin Negative (Negative); Urine Blood 1+ (Negative); Urine Color Amber; Urine Glucose Negative (Negative); Urine Ketones Negative (Negative); Urine Nitrite Negative (Negative); Urine Protein 3+(>=500 mg/dL) (Negative); Urine Specific Gravity 1.037 (1.002-1.030); Urine Urobilinogen Negative (Negative)
[2021-09-24 19:00] LABS: Albumin 2.8 g/dL (3.2-5.2); Albumin/Globulin Ratio 1.2 (1-3); Calcium 8.4 mg/dL (8.6-10.3); Globulin 2.4 g/dL (2-4); Potassium 4.3 mmol/L (3.5-5.0); Total Bilirubin 0.2 mg/dL (0.2-1.0); Total Protein 5.2 g/dL (6.4-8.9)
[2021-09-24 19:01] LABS: Urine Bacteria 1+ (Absent); Urine Red Blood Cell 1+(3-5/hpf) (Absent); Urine Squamous Epithelial Cell Present (Absent); Urine White Blood Cell 2+(11-20/hpf) (Absent)
[2021-09-24] MEDS ORDERED: Labetalol IV 5 MG/ML 20 ml VIAL IV PUSH ONE (19:47)
[2021-09-24] MEDS ORDERED: Magnesium Sulfate OB PREMIX 4 GM/100 ML BAG IV ONE (19:52)
[2021-09-24] MEDS ORDERED: Buffered Lidocaine 1% SYRIN 1 ml INTRADERM ONE (19:52)
[2021-09-24] MEDS ORDERED: ceFOXitin 2 GM IVPREMIX 2 GM/50 ML BAG IVPB ONE (19:52)
[2021-09-24] MEDS ORDERED: Lactated Ringers 1000 ml BAG 1,000 ML IV ONE (19:52)
[2021-09-24] MEDS ORDERED: Sodium Citrate/Citric Acid LIQ 15 ML UDC PO ONE (19:52)
[2021-09-24] MEDS ORDERED: Calcium Gluconate 1 GM/10 ML VIAL (in Pyxis) IV PUSH PRN (19:52)
[2021-09-24] MEDS ORDERED: Lactated Ringers 1000 ml BAG 1,000 ML IV SCH (20:00)
[2021-09-24] MEDS ORDERED: Magnesium Sulfate OB PREMIX 40 GM/1,000 ML BAG IVPB SCH ×2 (20:00→20:46)
[2021-09-24] MEDS ORDERED: hydrALAZINE 20 mg/ml 1 ML Vial IV IV SLOW PU ONE (20:52)
[2021-09-24] MEDS ORDERED: Betamethasone 6 mg/ml 5 ml VIAL IM SCH (21:00)
== END 2021-09-24 21:58 | disposition short-term general hospital (02) | DRG 955 ==
LOC: MCHOBOUT 17:33 → MCHOB 19:56
PROVIDERS: ADMIT Obstetrics & Gynecology; ATTEND Obstetrics & Gynecology

== ENCOUNTER 2021-09-25 06:23 | Inpatient (IN) ==
[2021-09-25] MEDS ORDERED: Buffered Lidocaine 1% SYRIN 1 ml INTRADERM ONE ×2 (06:38→07:15)
[2021-09-25] MEDS ORDERED: Calcium Gluconate 1 GM/10 ML VIAL (in Pyxis) IV PUSH PRN ×2 (06:38→07:22)
[2021-09-25] MEDS ORDERED: Lactated Ringers 1000 ml BAG 1,000 ML IV SCH ×2 (07:00→08:00)
[2021-09-25] MEDS ORDERED: Magnesium Sulfate OB PREMIX 40 GM/1,000 ML BAG IVPB SCH ×2 (07:00→08:00)
[2021-09-25] MEDS ORDERED: Calcium Gluconate 1 GM/10 ML VIAL (in Pyxis) ONE (07:01)
[2021-09-25] MEDS ORDERED: Magnesium Sulfate OB PREMIX 40 GM/1,000 ML BAG ONE (07:01)
[2021-09-25] MEDS ORDERED: Betamethasone 6 mg/ml 5 ml VIAL IM ONE ×2 (07:15→21:00)
[2021-09-25] MEDS ORDERED: Lactated Ringers 1000 ml BAG 1,000 ML IV ONE (07:15)
[2021-09-25 07:34] VITALS: BP 153/78
[2021-09-25 11:15] LABS: Hematocrit 37 % (35-47); Hemoglobin 12.8 g/dL (12.0-16.0); Mean Corpuscular HGB Conc 34 g/dL (31-36); Mean Corpuscular Hemoglobin 31 pg (27-31); Mean Corpuscular Volume 90 fL (80-97); Mean Platelet Volume 9.9 fL (7.4-10.4); Platelet Count 165 10^3/uL (150-450); Platelet Count 170 10^3/ul (150-450); Red Blood Count 4.14 10^6 /uL (3.70-4.87); Red Cell Distribution Width 13 % (10-15); White Blood Count 14.3 10^3/uL (3.5-10.8)
[2021-09-25 11:28] LABS: Albumin 3.2 g/dL (3.2-5.2); Albumin/Globulin Ratio 1.1 (1-3); Calcium 8.6 mg/dL (8.6-10.3); Globulin 2.8 g/dL (2-4); Potassium 4.7 mmol/L (3.5-5.0); Total Bilirubin 0.3 mg/dL (0.2-1.0); Uric Acid 8.1 mg/dL (2.3-6.6); eGFR CKD-EPI 59.8 (>60)
[2021-09-25 11:45] LABS: Activated Partial Thrombo Time 25.4 seconds (26.0-38.0); Fibrinogen 337.9 mg/dL (110.8-404.3); INR 0.87 (0.86-1.15)
[2021-09-25 12:43] LABS: Schistocytes ABSENT
== END 2021-09-25 16:45 | disposition short-term general hospital (02) | DRG 560 ==
LOC: MCHOBOUT 06:23 → MCHOB 06:25
PROVIDERS: ADMIT Obstetrics & Gynecology; ATTEND Obstetrics & Gynecology